=== PATIENT | male | born 1970 | race Caucasian/White ===

== ENCOUNTER 2019-09-16 17:05 | Emergency (ER) | payer BC, SELFPAY ==
--- NOTE | ~2019-09-16 | XR_ITS ---
XR finger 2nd RT min 2V DATE: 09/16/2019 17:23 INDICATION: Injury. Pain at proximal interphalangeal area TECHNIQUE: 4 views COMPARISON: None FINDINGS: No fracture or dislocation, periosteal reaction or bone destruction. No radiopaque soft tis kaitlyn foreign body or subcutaneous emphysema is evident. IMPRESSION: No fracture or dislocation of second digit Reviewed, dictated and finalized at location A.
[2019-09-16 17:10] VITALS: BP 123/52; PULSE 86; RESP 16; TEMP 36.6; O2SAT 97
--- NOTE | 2019-09-16 17:52 | ED.UPPEXIN ---
HPI - Extremity Injury (Upper) General Chief Complaint: Extremity Injury, Upper Stated Complaint: r index finger injury Time Seen by Provider: 09/16/19 17:15 Source: patient Mode of arrival: ambulatory Limitations: no limitations History of Present Illness HPI narrative: This is a 48 year old male that presents to the ER for finger injury just prior to arrival. Reports he was pulling on his shoes and felt the finger pop. Reports he had to put the finger back in place. Reports since he has had decreased ROM due to pain. Denies numbness. Related Data Home Medications Medication Instructions Recorded Confirmed atorvastatin 40 mg PO DAILY 09/16/19 clopidogrel [Plavix] 75 mg PO DAILY 09/16/19 fenofibrate micronized 200 mg PO DAILY 09/16/19 fluoxetine [Prozac] 20 mg PO DAILY 09/16/19 furosemide [Lasix] 40 mg PO DAILY 09/16/19 lisinopril 5 mg PO DAILY 09/16/19 metoprolol tartrate 50 mg PO Q12H 09/16/19 pantoprazole 40 mg PO QAM 09/16/19 potassium chloride 10 meq PO DAILY 09/16/19 Allergies Allergy/AdvReac Type Severity Reaction Status Date / Time codeine Allergy Severe HIVES Verified 09/16/19 17:39 niacin AdvReac Intermediate Gastrointestinal Verified 09/16/19 17:39 [From Niaspan Upset Extended-Release] Review of Systems Review of Systems: Narrative: CONSTITUTIONAL: Denies fever MUSCULOSKELETAL: Reports joint pain, and myalgia. NEUROLOGIC: Denies numbness All systems reviewed & are unremarkable except as noted in HPI and below PMFSH Past Medical History Medical History (Updated 09/16/19 @ 18:04 by Carey Rowland PA-C) History of gastroesophageal reflux (GERD) History of hyperlipidemia History of hypertension Social History Social History Gender identity (if verbalized by the patient): Male Exam Narrative: Exam Narrative: GENERAL: Well-appearing, well-nourished, and in no acute distress. HEAD: Normocephalic, atraumatic. EYES: EOMI. EXTREMITIES: Normal range of motion. No edema or obvious deformity. Normal sensation. Normal radial pulses SKIN: Warm, dry, no rash. NEURO: No focal deficits. Alert and oriented x3. PSYCH: Normal mood and affect Course Vital Signs Vital signs: Vital Signs Temperature 98 F 09/16/19 17:10 Pulse Rate 86 09/16/19 17:10 Respiratory Rate 16 09/16/19 17:10 Blood Pressure 123/52 L 09/16/19 17:10 Pulse Oximetry 97 09/16/19 17:10 Temperature 98 F 09/16/19 17:10 Pulse Rate 86 09/16/19 17:10 Respiratory Rate 16 09/16/19 17:10 Blood Pressure 123/52 L 09/16/19 17:10 Pulse Oximetry 97 09/16/19 17:10 MDM - Extremity Injury (Upper) MDM Narrative Medical decision making narrative: Patient presents to the emergency department for finger injury just prior to arrival. Right second finger injury is without acute findings. Patient placed in a metal finger splint. Will be given plastics for follow-up. Patient was given warnings to return to the ER Imaging Data Radiologist's impression: ITS Impressions Finger X-Ray 09/16/19 17:33 IMPRESSION: No fracture or dislocation of second digit Critical Care Time Critical Care Time Critical Care Time: No Discharge Plan Discharge Clinical Impression: Finger sprain Qualifiers: Encounter type: initial encounter Finger: index finger Sprain of finger site: unspecified site Laterality: right Qualified Code(s): S63.610A - Unspecified sprain of right index finger, initial encounter Patient Disposition: Home, Self-Care Condition: Stable Instructions: Finger Sprain (ED) Additional Instructions: Return to the emergency department if you experience fever, redness and swelling of your hand, numbness, or any other symptoms that are concerning to you Rest. Ice to the area. Wear splint. [id number] pain medication as needed Follow-up with plastic surgery Prescriptions: No Action furosemide [Lasix] 40 mg Tablet 40 mg PO DAILY RF: 0 atorvastatin 40
== END 2019-09-16 18:19 | disposition home or self-care (01) ==
PROVIDERS: Emergency Provider Emergency Medicine; PCP Physician Assistant
DX: S63.610A Unspecified sprain of right index finger, initial encounter (principal); K21.9 Gastro-esophageal reflux disease without esophagitis; E78.5 Hyperlipidemia, unspecified; I10 Essential (primary) hypertension; X50.9XXA Other and unspecified overexertion or strenuous movements or postures, initial encounter
CPT/HCPCS: 29130; 73140; 99283

== ENCOUNTER 2019-10-17 07:30 | Outpatient (CLI) | payer BC, SELFPAY ==
--- NOTE | ~2019-10-17 | XR_ITS ---
EXAMINATION: NM bone 3 phase, XR foot RT min 3V DATE: 10/17/2019 13:08 INDICATION: Diabetic foot ulcer with one month of pain at the plantar aspect of the right midfoot. TECHNIQUE: 1. 25.5 mCi Tc-99m HDP by intravenous route. Scintigrams of the bilateral feet and ankles were obtai juany in angiographic, blood pool, and delayed phases. 2. Dorsal plantar, lateral and 2 oblique views of the right foot were obtained for correlation. COMPARISON: Right foot radiographs dated 10/17/2019 FINDINGS: Postoperative change of bilateral transmetatarsal amputations are noted. There is diffuse increased a ctivity throughout the right foot and ankle relative to the left on the immediate angiographic an ear ly blood pool images which is slightly more prominent on the medial than along the lateral side of th e right foot and ankle. There is also asymmetric diffuse mildly increased uptake in the bones at the right foot and ankle relative to the left likely reflecting the diffuse asymmetrically increased perf usion to the right foot and ankle. There are foci of likely degenerative joint centered uptake at the bilateral ankles and at the dorsal aspect of the right talonavicular joint. Correlation with the pavan in radiographs demonstrates at the ulceration of concern at the lateral/plantar aspect of the midfoot near the base of the right fifth metatarsal. There is no cortical erosion of the bones at this locat ion nor significant focally increased bone uptake to suggest osteomyelitis. IMPRESSION: 1. Diffuse right-sided increased soft tissue uptake on the angiographic and immediate blood pool robert ges and mild diffuse asymmetric increased bone uptake likely reflecting inflammation related to a pro minent ulceration at the plantar/lateral aspect of the forefoot. No cortical erosion or significant i ncreased bone uptake at the adjacent base of the fifth metatarsal to suggest osteomyelitis. 2. Likely degenerative joint centered uptake at the bilateral ankles and at the dorsal aspect of the right talonavicular joint. Reviewed, dictated and finalized at location A. IMPRESSION: 1. Diffuse right-sided increased soft tissue uptake on the angiographic and im mediate blood pool images and mild diffuse asymmetric increased bone uptake lik ashley reflecting inflammation related to a prominent ulceration at the plantar/la teral aspect of the forefoot. No cortical erosion or significant increased bone uptake at the adjacent base of the fifth metatarsal to suggest osteomyelitis. 2. Likely degenerative joint centered uptake at the bilateral ankles and at the dorsal aspect of the right talonavicular joint.
== END 2019-10-17 07:31 | disposition home or self-care (01) ==
PROVIDERS: PCP Physician Assistant; Visit Provider Podiatrist Foot & Ankle Surgery
DX: L97.413 Non-pressure chronic ulcer of right heel and midfoot with necrosis of muscle (principal)
CPT/HCPCS: 73630; 78315; A9561

== ENCOUNTER 2020-03-10 13:04 | Observation (INO) | payer BC, SELFPAY ==
--- NOTE | ~2020-03-10 | CT_ITS ---
EXAMINATION: CT abdomen pelvis w con EXAM DATE: 03/10/2020 14:12 INDICATION: Low abdominal pain, nausea vomiting diarrhea. Difficulty urinating. TECHNIQUE: Spiral CT of the abdomen and pelvis was performed following intravenous injection of 100 m L Omnipaque 350. Axial, coronal and sagittal images were reviewed. The dose-length product (DLP) fo r this examination was 1743.94 mGy-cm. The exposure was tailored according to patient size (auto mA exposure control), and iterative reconstruction (ASIR) was used as additional dose reduction techniqu e. Comparison is made to prior examination from 09/29/2018. FINDINGS: There is a right adrenal gland lesion measuring up to 7.7 cm, predominantly fat attenuation with soft tissue strands in some regions of coarse calcification peripherally. Size appears unchange d compared to prior study, there has been some increase in the amount of calcification. Appearance is consistent with a large myelolipoma (benign), but these are sometimes resected if this large. Correl ate with any known management for this at time of prior CT September 2018. Left adrenal gland, spleen, gallbladder and pancreas are unremarkable. Gallbladder is unremarkable. No biliary obstruction. Portal and splenic veins are patent. Kidneys enhance symmetrically. There is no hydronephrosis. The prostate is unremarkable. Bladder is moderately distended, unremarkable. There is no retroperitoneal or pelvic lymphadenopathy. There is moderate scattered arteriosclerot ic disease. Small left inguinal fat-containing hernia. The appendix is not positively visualized. There is no pericecal inflammatory change to suggest appe ndicitis. The stomach and small bowel are unremarkable. There is expected amount of colonic stool. No free intraperitoneal gas. The heart is normal in size. There are no pericardial or pleural e ffusions. The lung bases are unremarkable. There are no osteoblastic or osteolytic lesions identifi ed. Nonspecific subcutaneous fat stranding lateral aspect left thigh. IMPRESSION: 1. No acute intra-abdominal findings. 2. Predominantly fatty density right adrenal mass consistent with myelolipoma. Please see above. 3. Nonspecific left thigh subcutaneous edema laterally. 4. Small left inguinal fat-containing hernia. Reviewed, dictated and finalized at location A. RVISOR UNLOADING
[2020-03-10 13:09] VITALS: BP 133/72; PULSE 83; RESP 18; TEMP 36.9; O2SAT 99
[2020-03-10 13:35] LABS: Basophils Percent Auto 0.2 % (0.2-1.2); Eosinophils Absolute Auto 0.4 K/mm3 (0-0.3); Eosinophils Percent Auto 3.3 % (0-4.4); Hematocrit 47.5 % (42.0-52.0); Hemoglobin 16.1 g/dL (14.0-18.0); Immature Granulocyte Absolute 0.05 K/mm3 (0.00-0.031); Immature Granulocyte Percent A 0.4 % (0-0.5); Lymphocytes Absolute Auto 1.73 K/mm3 (0.9-3.2); Lymphocytes Percent Auto 14.8 % (18.3-44.2); Mean Corpuscular HGB Conc 33.9 g/dl (32-36); Mean Corpuscular Hemoglobin 30.2 pg (26-34); Mean Corpuscular Volume 89.1 fl (80-100); Mean Platelet Volume 10.8 fl (7.4-10.4); Monocytes Absolute Auto 0.9 K/mm3 (0.1-0.6); Monocytes Percent Auto 7.4 % (2.6-8.5); Neutrophils Absolute Auto 8.6 K/mm3 (1.3-6.7); Neutrophils Percent Auto 73.9 % (45.5-73.1); Platelet Count Result 228 k/mm3 (150-375); Red Blood Count 5.33 M/mm3 (4.6-6.20); Red Cell Distribution Width 14.3 % (11.5-14.5); White Blood Count 11.7 K/mm3 (4.5-10.0)
[2020-03-10 13:48] LABS: Alanine Aminotransferase 18 U/L (4-50); Albumin Level 3.9 g/dL (3.5-5.1); Alkaline Phosphatase 67 U/L (38-126); Anion Gap 10 mmol/L (8-16); Aspartate Amino Transferase 26 U/L (17-59); Bilirubin,Total 0.6 mg/dL (0.2-1.3); Blood Urea Nitrogen 22 mg/dL (9-20); Calcium 9.5 mg/dL (8.4-10.2); Carbon Dioxide 20 mmol/L (22-30); Chloride 103 mmol/L (98-107); Estimated CRCL calculation 102 ml/min; Estimated Glomerular Filt Rate > 60; Glucose 149 mg/dL (75-110); Lipase 29 U/L (23-300); Potassium 4.6 mmol/L (3.4-5.0); Sodium 133 mmol/L (137-145)
[2020-03-10 14:00] LABS: Add Urine Microscopic? YES; Appearance Urine Cloudy (Clear); Bacteria Urine 4+ /hpf; Bilirubin Urine Negative (Negative); Blood Urine 1+ (Negative); Color Urine Yellow (Yellow); Glucose Urine UA 1+ mg/dL (Negative); Ketones Urine Negative (Negative); Leukocyte Esterase Ur Negative LEU/UL (Negative); Mucus Urine Heavy /lpf; Nitrate Urine Negative (Negative); Protein Urine 2+ mg/dL (Negative); RBC Urine >75 /hpf (0-2); Specific Grav Ur 1.027 (1.001-1.035); Squamous Epithelial Cell Urine Occasional /hpf (Few); Urobilinogen Urine Negative mg/dL (<2.0); WBC Urine >75 /hpf
[2020-03-10 14:02] VITALS: BP 152/96; BP 154/96; PULSE 81; PULSE 82
[2020-03-10 14:03] VITALS: BP 130/81; PULSE 86
--- NOTE | 2020-03-10 14:11 | ED.GENADULT ---
HPI - General Adult General Chief complaint: Nausea/Vomiting/Diarrhea Stated complaint: n/v/d x 1 week Time Seen by Provider: 03/10/20 13:19 Source: patient and family Mode of arrival: ambulatory Limitations: no limitations History of Present Illness HPI narrative: 49 years old white male presents with nausea, vomiting and diarrhea started 1 week ago. Patient denies any fever, chills, exposure to anybody with COVID-19. Patient also complaining of trouble urinating for the last 2 days. He goes to urinate without urine output. Related Data Home Medications Medication Instructions Recorded Confirmed atorvastatin 40 mg PO DAILY 09/16/19 clopidogrel [Plavix] 75 mg PO DAILY 09/16/19 fenofibrate micronized 200 mg PO DAILY 09/16/19 fluoxetine [Prozac] 20 mg PO DAILY 09/16/19 lisinopril 5 mg PO DAILY 09/16/19 metoprolol tartrate 50 mg PO Q12H 09/16/19 pantoprazole 40 mg PO QAM 09/16/19 Allergies Allergy/AdvReac Type Severity Reaction Status Date / Time codeine Allergy Severe HIVES Verified 03/10/20 13:39 niacin AdvReac Intermediate Gastrointestinal Verified 03/10/20 13:39 [From Niaspan Upset Extended-Release] Review of Systems Review of Systems: Narrative: CONSTITUTIONAL: Denies fever, chills, or sweats. EYES: Denies visual changes, redness, or discharge. ENT: Denies rhinorrhea, congestion, sore throat, or otalgia. CARDIOVASCULAR: Denies chest pain, palpitations, or edema. RESPIRATORY: Denies cough or dyspnea. GASTROINTESTINAL: Abdominal pain, nausea, vomiting and diarrhea GENITOURINARY: Denies dysuria or hematuria. SKIN: Denies rash or itching. MUSCULOSKELETAL: Denies back pain, joint pain, or myalgia. NEUROLOGIC: Denies headache, numbness, or weakness. PSYCHIATRIC: Denies anxiety or depression. [facility] Past Medical History Medical History (Updated 03/10/20 @ 16:05 by Ev Porras MD) History of gastroesophageal reflux (GERD) History of hyperlipidemia History of hypertension Social History Social History Gender identity (if verbalized by the patient): Male Course Vital Signs Vital signs: Vital Signs Temperature 36.9 C 03/10/20 13:09 Pulse Rate 83 03/10/20 13:09 Respiratory Rate 18 03/10/20 13:09 Blood Pressure 133/72 03/10/20 13:09 Pulse Oximetry 99 03/10/20 13:09 Temperature 36.9 C 03/10/20 13:09 Pulse Rate 86 03/10/20 14:03 Respiratory Rate 18 03/10/20 13:09 Blood Pressure 130/81 03/10/20 14:03 Pulse Oximetry 99 03/10/20 13:09 Medical Decision Making Vital Signs Vital Signs: Vital Signs Temperature 36.9 C 03/10/20 13:09 Pulse Rate 83 03/10/20 13:09 Respiratory Rate 18 03/10/20 13:09 Blood Pressure 133/72 03/10/20 13:09 Pulse Oximetry 99 03/10/20 13:09 Temperature 36.9 C 03/10/20 13:09 Pulse Rate 86 03/10/20 14:03 Respiratory Rate 18 03/10/20 13:09 Blood Pressure 130/81 03/10/20 14:03 Pulse Oximetry 99 03/10/20 13:09 Lab Data Result diagrams: 03/10/20 13:17 03/10/20 13:17 Labs: Lab Results 03/10/20 03/10/20 03/10/20 Range/Units 13:17 13:17 13:45 WBC 11.7 H (4.5-10.0) K/mm3 RBC 5.33 (4.6-6.20) M/mm3 Hgb 16.1 (14.0-18.0) g/dL Hct 47.5 (42.0-52.0) % MCV 89.1 (80-100) fl MCH 30.2 (26-34) pg MCHC 33.9 (32-36) g/dl RDW 14.3 (11.5-14.5) % Plt Count 228 (150-375) k/mm3 MPV 10.8 H (7.4-10.4) fl Immature Gran % (Auto) 0.4 (0-0.5) % Neut % (Auto) 73.9 H (45.5-73.1) % Lymph % (Auto) 14.8 L (18.3-44.2) % Grainger % (Auto) 7.4 (2.6-8.5) % Eos % (Auto) 3.3 (0-4.4) % Baso % (Auto) 0.2 (0.2-1.2) % Lymph # (Auto) 1.73 (0.9-3.2) K/mm3 Grainger # (Auto) 0.9 H (0.1-0.6) K/mm3 Eos # (Auto) 0.4 H (0-0.3) K/mm3 Baso # (Auto) 0.0 (0.0-0.1) K/mm3 Abs Immat Gran (auto) 0.05 H (0.00-0.031) K/mm3 Absolute Neuts (auto) 8.6 H (1.3-6.7) K/mm3 Absolute Nucleated RBC 0.0 (0.0-0.012) K
[2020-03-10] MEDS: SODIUM CHLORIDE 0.9% IV 1,000 ML 999 ML IV CONT (14:20)
[2020-03-10 16:18] VITALS: BP 160/83; PULSE 79; RESP 18; O2SAT 100
[2020-03-10 17:15] VITALS: BP 139/67; PULSE 74; RESP 18; TEMP 36.4; O2SAT 100
[2020-03-10 18:19] LABS: Glucose Point of Care 114 (65-105)
[2020-03-10] MEDS: SODIUM CHLORIDE 0.9% IV 1,000 ML 150 ML IV CONT (18:35)
[2020-03-10 18:38] VITALS: BMI 40.6
--- NOTE | 2020-03-10 18:45 | PC.NURSE ---
This patient, Sina Sebastian, was admitted to 3 Med Surg Room 329-01. Patient/family oriented to hospital policies and general routines including ID bracelet, bed and alarms, visiting hours, pain management, procedures, bathroom and other care routines, personal items, smoking policy, room service/diet, and visiting hours. Information on how to activate the Rapid Response Team has been discussed. Patient/Family are encouraged to report perceived risks to care and to ask questions if they do not understand what they are told or what they should do.
[2020-03-10 20:00] VITALS: BP 139/62; PULSE 72; RESP 18; TEMP 36.8; O2SAT 99
--- NOTE | 2020-03-10 21:00 | PM.IMHP ---
H&P: HPI History of Present Illness Date/Time: 03/10/20 21:00 Chief Complaint: Diarrhea and difficulties urinating. Narrative: Sina Sebastian is a 49-year-old male with coronary artery disease status post three-vessel CABG, insulin-dependent diabetes, hypertension, and hyperlipidemia presented to the emergency department earlier today via private vehicle from home with complaints of diarrhea and difficulties urinating. For about the last week or so he has not been feeling well due to unrelenting diarrhea, reportedly passing upwards of 20 stools a day which have continued despite taking antimotility agent however they have slowed up some as he has not had much to eat or drink in the last 24 to 36 hours. Last evening he had an episode of emesis after eating however that has since resolved. He was started on Jardiance and Farxiga about 2 weeks ago, and assumes that perhaps his symptoms are due to one or both of those medications. Last Jardiance injection was just yesterday but he has not taken Farxiga for several days however that has not made a difference in his diarrhea. He also mentions taking ciprofloxacin for 2 weeks within the last month for a diabetic foot ulcer, but completed that course well over a week ago. Over the past 2 days he has had difficulties urinating, with decreased urine output and feelings of incomplete evacuation of his bladder. At the time my evaluation his bladder is distended and tender to palpation. Bladder scan demonstrated 940 cc of urine in the bladder with a postvoid residual of 347 cc. Prior to last couple of days he has not had issues urinating and specifically denies dysuria, hesitancy, urgency, nocturia, and decreased stream. No fever or chills. He denies cough and shortness of breath. No sinus congestion, rhinorrhea, otalgia, or odynophagia. No known sick contacts. No history of C diff. No recent travel. Review of Systems Review of Systems: Narrative: Twelve systems were reviewed with pertinent positives and negatives as per HPI. No headache. He denies chest pain and shortness of breath. No cough. He suspects he has sleep apnea as he snores and his has stolen that she thinks he stops breathing on occasion at night. He also has some daytime somnolence. His primary care provider is setting him up with an outpatient sleep study soon. No orthopnea, PND, or lower extremity edema. He has not had exertional chest pain or palpitations. No back pain or recent injury. No saddle anesthesia. He recently saw his contract specialist and was started on Jardiance and Farxiga, reportedly recent hemoglobin A1c was around 8%. No blurry vision, polydipsia, or polyuria. He has a chronic right diabetic foot wound for which he sees a lawn care specialist weekly. No pain at the site. No purulent drainage, erythema, or edema. Except as documented, all other systems were reviewed and are negative. [facility] Past Medical History Medical History (Updated 03/10/20 @ 23:41 by Loree Mckeon PA-C) Chronic ulcer of right foot due to diabetes mellitus Coronary artery disease History of myocardial infarction in November 2010. Status post three-vessel CABG in July 2015. Degenerative disc disease Depression with anxiety Dyslipidemia Gastroesophageal reflux disease History of MRSA infection History MRSA skin and soft tissue infection. History of osteomyelitis Bilateral feet requiring multiple amputations. Hypertension Insulin dependent type 2 diabetes mellitus Ischemic cardiomyopathy Ejection fraction as low as 36%. EF 48% on echocardiogram dated 11/01/2017. Osteoarthritis Surgical History Surgical History (Updated 03/10/20 @ 22:33 by Loree Mckeon PA-C) History of appendectomy History of cataract extraction History of coronary artery bypass graft x 3 (~07/2015) History of lumbar surgery History of transmetatarsal amputation of left foot (~2009) History of transmetatarsal amputation of right foot (~2013) Status post
[2020-03-10 21:38] LABS: Glucose Point of Care 128 (65-105)
[2020-03-10 22:25] LABS: SARS-CoV-2 RNA PCR Negative
[2020-03-11] VITALS: BP 149/73; PULSE 72; RESP 20; TEMP 36.6; O2SAT 98
[2020-03-11 00:12] VITALS: PULSE 72
[2020-03-11] MEDS: TAMSULOSIN HCL 0.4 MG CAPSULE PO (00:12)
[2020-03-11] MEDS: METOPROLOL TARTRATE 50 MG TAB PO ×2 (00:12→09:03)
[2020-03-11] MEDS: SODIUM CHLORIDE 0.9% IV 1,000 ML 150 ML IV CONT (03:05)
[2020-03-11 06:00] VITALS: BP 145/74; PULSE 68; RESP 18; TEMP 36.6; O2SAT 99
[2020-03-11 07:07] LABS: Basophils Percent Auto 0.2 % (0.2-1.2); Eosinophils Absolute Auto 0.6 K/mm3 (0-0.3); Eosinophils Percent Auto 7.3 % (0-4.4); Hematocrit 44.6 % (42.0-52.0); Hemoglobin 14.7 g/dL (14.0-18.0); Immature Granulocyte Absolute 0.02 K/mm3 (0.00-0.031); Immature Granulocyte Percent A 0.2 % (0-0.5); Lymphocytes Percent Auto 19.4 % (18.3-44.2); Mean Corpuscular Hemoglobin 29.7 pg (26-34); Mean Corpuscular Volume 90.1 fl (80-100); Mean Platelet Volume 10.7 fl (7.4-10.4); Monocytes Absolute Auto 0.6 K/mm3 (0.1-0.6); Monocytes Percent Auto 6.5 % (2.6-8.5); Neutrophils Absolute Auto 5.8 K/mm3 (1.3-6.7); Neutrophils Percent Auto 66.4 % (45.5-73.1); Platelet Count Result 181 k/mm3 (150-375); Red Blood Count 4.95 M/mm3 (4.6-6.20); Red Cell Distribution Width 14.3 % (11.5-14.5); White Blood Count 8.8 K/mm3 (4.5-10.0)
[2020-03-11 07:16] LABS: Hemoglobin A1C 7.8 % (<5.7)
[2020-03-11 07:22] LABS: Anion Gap 4 mmol/L (8-16); Blood Urea Nitrogen 16 mg/dL (9-20); Calcium 8.6 mg/dL (8.4-10.2); Carbon Dioxide 25 mmol/L (22-30); Chloride 104 mmol/L (98-107); Estimated CRCL calculation 102 ml/min; Estimated Glomerular Filt Rate > 60; Glucose 138 mg/dL (75-110); Magnesium 1.3 mg/dL (1.6-2.3); Potassium 4.1 mmol/L (3.4-5.0); Sodium 133 mmol/L (137-145)
[2020-03-11] MEDS: ATORVASTATIN 40 MG TABLET PO (09:02)
[2020-03-11] MEDS: CLOPIDOGREL BISULFATE 75 MG TABLET PO (09:02)
[2020-03-11] MEDS: PANTOPRAZOLE 40 MG TABLET PO (09:02)
[2020-03-11] MEDS: lisinopriL 5 MG TABLET PO (09:02)
[2020-03-11] MEDS: FLUoxetine HCL 20 MG CAPSULE PO (09:02)
[2020-03-11 09:03] VITALS: PULSE 77
[2020-03-11] MEDS: FENOFIBRATE,MICRONIZED 48 MG TABLET 192 MG PO (09:03)
--- NOTE | 2020-03-11 09:41 | PM.DS ---
DS: Admitting Diagnosis Admitting Diagnosis Admitting Diagnosis: 1 UTI 2. Dehydration 3. Dyslipidemia 4. Hypertension DS: Discharge Diagnosis Discharge Diagnosis (1) Urinary tract infection: Qualifiers: Hematuria presence: with hematuria Urinary tract infection type: site unspecified Qualified Code(s): N39.0 - Urinary tract infection, site not specified; R31.9 - Hematuria, unspecified Code(s): N39.0 - Urinary tract infection, site not specified Status: Acute (2) Dehydration: Code(s): E86.0 - Dehydration Status: Acute (3) Dyslipidemia: Code(s): E78.5 - Hyperlipidemia, unspecified Status: Acute (4) Hypertension: Code(s): I10 - Essential (primary) hypertension Status: Inactive (5) Depression with anxiety: Code(s): F41.8 - Other specified anxiety disorders Status: Inactive (6) Coronary artery disease: Code(s): I25.10 - Atherosclerotic heart disease of [place] coronary artery without angina pectoris Status: Inactive (7) Ischemic cardiomyopathy: Code(s): I25.5 - Ischemic cardiomyopathy Status: Inactive (8) Chronic ulcer of right foot due to diabetes mellitus: Code(s): E11.621 - Type 2 diabetes mellitus with foot ulcer; L97.519 - Non-pressure chronic ulcer of other part of right foot with unspecified severity Status: Acute (9) Insulin dependent type 2 diabetes mellitus: Code(s): E11.9 - Type 2 diabetes mellitus without complications; Z79.4 - [employer] (current) use of insulin Status: Acute (10) Urinary retention: Code(s): R33.9 - Retention of urine, unspecified Status: Acute DS: Summary Hospital Course Hospital Course: arrative: Sina Sebastian is a 49-year-old male with coronary artery disease status post three-vessel CABG, insulin-dependent diabetes, hypertension, and hyperlipidemia presented to the emergency department earlier today via private vehicle from home with complaints of diarrhea and difficulties urinating. For about the last week or so he has not been feeling well due to unrelenting diarrhea, reportedly passing upwards of 20 stools a day which have continued despite taking antimotility agent however they have slowed up some as he has not had much to eat or drink in the last 24 to 36 hours. Last evening he had an episode of emesis after eating however that has since resolved. He was started on Jardiance and Farxiga about 2 weeks ago, and assumes that perhaps his symptoms are due to one or both of those medications. Last Jardiance injection was just yesterday but he has not taken Farxiga for several days however that has not made a difference in his diarrhea. He also mentions taking ciprofloxacin for 2 weeks within the last month for a diabetic foot ulcer, but completed that course well over a week ago. Over the past 2 days he has had difficulties urinating, with decreased urine output and feelings of incomplete evacuation of his bladder. At the time my evaluation his bladder is distended and tender to palpation. Bladder scan demonstrated 940 cc of urine in the bladder with a postvoid residual of 347 cc. Prior to last couple of days he has not had issues urinating and specifically denies dysuria, hesitancy, urgency, nocturia, and decreased stream. No fever or chills. He denies cough and shortness of breath. No sinus congestion, rhinorrhea, otalgia, or odynophagia. No known sick contacts. No history of C diff. No recent travel. Patient is feeling better today. Patient wants to go home today. Will discharge the patient at his request. Patient will be given p.o. antibiotics. Patient would prefer to primary care physician and Urology outpatient next week. Condition dime-sized stable. Will follow the culture reports an outpatient. Time spent discussing smoking cessation with patient: 3 to 10 minutes Status at Discharge Cognitive/behavioral status at discharge: Stable Functional status at
[2020-03-11 12:13] LABS: Glucose Point of Care 145 (65-105)
== END 2020-03-11 11:34 | disposition home or self-care (01) ==
LOC: ANHED 16:40 → ANH3MEDSUR 23:34
PROVIDERS: Emergency Medicine; Physician Assistant; Admitting Provider Internal Medicine; Emergency Provider Emergency Medicine; PCP Physician Assistant; Visit Provider Internal Medicine
DX: N39.0 Urinary tract infection, site not specified (principal); E86.0 Dehydration; R33.9 Retention of urine, unspecified; R11.2 Nausea with vomiting, unspecified; R19.7 Diarrhea, unspecified; E11.621 Type 2 diabetes mellitus with foot ulcer; L97.519 Non-pressure chronic ulcer of other part of right foot with unspecified severity; I10 Essential (primary) hypertension; E78.5 Hyperlipidemia, unspecified; K21.9 Gastro-esophageal reflux disease without esophagitis; R93.5 Abnormal findings on diagnostic imaging of other abdominal regions, including retroperitoneum; I25.10 Atherosclerotic heart disease of native coronary artery without angina pectoris; F41.8 Other specified anxiety disorders; I25.5 Ischemic cardiomyopathy; M19.90 Unspecified osteoarthritis, unspecified site; I25.2 Old myocardial infarction; Z79.02 Long term (current) use of antithrombotics/antiplatelets; Z79.4 Long term (current) use of insulin; Z95.1 Presence of aortocoronary bypass graft; Z86.14 Personal history of Methicillin resistant Staphylococcus aureus infection; F17.210 Nicotine dependence, cigarettes, uncomplicated; Z20.828 Contact with and (suspected) exposure to other viral communicable diseases
CPT/HCPCS: 36415; 74177; 80048; 80053; 81001; 83036; 83690; 83735; 85025; 87077; 87086; 87088; 87186; 87324; 87635; 96361; 96365; 99285; A9270; C9803; G0378; J0696; J7030; Q9967; U0003

== ENCOUNTER 2020-03-25 08:23 | Outpatient (CLI) | payer BC, SELFPAY ==
--- NOTE | ~2020-03-25 | US_ITS ---
EXAMINATION: US art doppler w press AMANDA INFANTE EXAM DATE: 03/25/2020 09:18 INDICATION: Peripheral vascular disease, foot ulcer. Bilateral toe amputations from infection. Pain a ll cervical bottom of right foot. TECHNIQUE: Segmental pressures and plethysmographic and Doppler waveforms of the brachial and lower e xtremity arteries were obtained. There is no prior study for comparison. FINDINGS: Right and left brachial artery pressures of 147 mm Hg and 131 mm Hg, respectively, are concordant (no rmal difference <= 30 mmHg). RIGHT LEG: The ankle-brachial index (TRINA) is 0.96 (normal >= 0.9-1). The lower extremity ratios, segmental pressure gradients as follows; Distal superficial femoral artery: ----- 1.27 (187 mmHg). Popliteal: 0.96 (141 mmHg). Dorsalis pedis: 0.95 (140 mmHg). Posterior tibial: 0.96 (141 mmHg). (Normal gradients <= 20-30 mmHg between adjacent levels on the same leg or the same levels on the two legs). Arterial waveforms are weakly biphasic. LEFT LEG: The ankle-brachial index (TRINA) is 0.71 (normal >= 0.9-1). The lower extremity ratios, segmental pressure gradients as follows; Distal superficial femoral artery: ----- 0.99 (145 mmHg). Popliteal: 0.64 (94 mmHg). Dorsalis pedis: 0.68 (100 mmHg). Posterior tibial: 0.71 (105 mmHg). (Normal gradients <= 20-30 mmHg between adjacent levels on the same leg or the same levels on the two legs). Arterial waveforms are weakly biphasic. IMPRESSION: 1. Right ankle-brachial index 0.96, normal. 2. Left ankle-brachial index 0.71, mildly decreased. 3. Segmental pressures as above. Reviewed, dictated and finalized at location B. BROTHER
== END 2020-03-25 08:24 | disposition home or self-care (01) ==
PROVIDERS: PCP Physician Assistant; Visit Provider Podiatrist Foot & Ankle Surgery
DX: I70.203 Unspecified atherosclerosis of native arteries of extremities, bilateral legs (principal); M79.89 Other specified soft tissue disorders
CPT/HCPCS: 93923

== ENCOUNTER 2020-04-08 15:50 | Observation (INO) | payer BC, SELFPAY ==
[2020-04-08] VITALS (7 sets, daily range): BP systolic 107–143; BP diastolic 60–100; PULSE 81–88; RESP 16–18; TEMP 36.2–37.2; O2SAT 97–100; BMI 41.8
--- NOTE | ~2020-04-08 | US_ITS ---
EXAMINATION: US venous doppler [facility] DATE: 04/08/2020 16:39 INDICATION: Right lower limb pain TECHNIQUE: Grayscale ultrasound images without and with compression and Doppler ultrasound images of the right lower extremity veins were obtained. COMPARISON: None. FINDINGS: The visualized portions of right common femoral vein, profunda (deep) femoral vein, femoral vein, pop liteal vein, peroneal trunk, posterior tibial veins, peroneal veins, gastrocnemius vein and greater s aphenous vein outflow are patent. IMPRESSION: 1. No deep venous thrombosis in the right lower limb. Reviewed, dictated and finalized at location B. 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
--- NOTE | 2020-04-08 16:21 | ED.GENADULT ---
HPI - General Adult General Chief complaint: Wound/Laceration Stated complaint: KNOT ON LEG Time Seen by Provider: 04/08/20 16:09 Source: patient History of Present Illness HPI narrative: Patient is a 49 y/o male complaining of right leg pain since last night. He states that he had some nausea and vomiting yesterday, which mostly resolved. He developed aching pain of right thigh since last night. He also has some redness to the area and fever. He rates his pain as 7/10 and it's worse with touching. He had fever of 101.4 earlier which responded to Tylenol. He has chronic wound to right foot for last 6 months. Related Data Home Medications Medication Instructions Recorded Confirmed atorvastatin 40 mg PO DAILY 09/16/19 04/08/20 clopidogrel [Plavix] 75 mg PO DAILY 09/16/19 04/08/20 fenofibrate micronized 200 mg PO DAILY 09/16/19 04/08/20 fluoxetine [Prozac] 20 mg PO DAILY 09/16/19 04/08/20 lisinopril 5 mg PO DAILY 09/16/19 04/08/20 metoprolol tartrate 50 mg PO Q12H 09/16/19 04/08/20 pantoprazole 40 mg PO QAM 09/16/19 04/08/20 Allergies Allergy/AdvReac Type Severity Reaction Status Date / Time codeine Allergy Severe HIVES Verified 03/10/20 13:39 niacin AdvReac Intermediate Gastrointestinal Verified 03/10/20 13:39 [From Niaspan Upset Extended-Release] Review of Systems Constitutional: Constitutional: Denies chills, Reports fever(s), Denies headache(s) and Denies weakness Eyes: Eyes: Denies blurry vision ENT: Denies headache(s) and Denies neck pain Cardiovascular: Cardiovascular: Denies chest pain and Denies dyspnea Respiratory: Respiratory: Denies cough and Denies dyspnea Gastrointestinal: Gastrointestinal: Denies abdominal pain, Denies diarrhea, Reports nausea and Reports vomiting Genitourinary: Genitourinary: Denies hematuria and Denies dysuria Musculoskeletal: Musculoskeletal: Denies back pain and Denies neck pain Integumentary/Breasts: Skin/Breast: Reports erythema (right thigh) and Reports wounds (chronic wound plantar surface of right foot) Neurologic: Denies headache(s) and Denies weakness [facility] Past Medical History Medical History (Updated 04/08/20 @ 23:41 by Renetta Butler MD) Chronic ulcer of right foot due to diabetes mellitus Coronary artery disease History of myocardial infarction in November 2010. Status post three-vessel CABG in July 2015. Degenerative disc disease Depression with anxiety Dyslipidemia Gastroesophageal reflux disease History of MRSA infection History MRSA skin and soft tissue infection. History of osteomyelitis Bilateral feet requiring multiple amputations. Hypertension Insulin dependent type 2 diabetes mellitus Hemoglobin A1c was 7.8% on 03/03/2020. Ischemic cardiomyopathy Ejection fraction as low as 36%. EF 48% on echocardiogram dated 11/01/2017. Osteoarthritis Surgical History Surgical History History of appendectomy History of cataract extraction History of coronary artery bypass graft x 3 (~07/2015) History of lumbar surgery History of transmetatarsal amputation of left foot (~2009) History of transmetatarsal amputation of right foot (~2013) Status post debridement Multiple debridements over the years for diabetic foot ulcers. Family History Family History Mother , of an IA at age 42. Acute myocardial infarction Hypertension Father , from an IA at age 36. Acute myocardial infarction Diabetes mellitus Social History Social History Social History: The patient lives in [place] with his . 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 He smoked a pack of cigarettes per day for at least 30 years. Consumes alcohol socially and in moderation. No illicit substance use. Lauren Sebastian is his surrogate decision maker and he wishes to be a full code.
[2020-04-08 17:08] LABS: Basophils Percent Auto 0.3 % (0.2-1.2); Eosinophils Absolute Auto 0.1 K/mm3 (0-0.3); Eosinophils Percent Auto 0.9 % (0-4.4); Hemoglobin 14.9 g/dL (14.0-18.0); Immature Granulocyte Absolute 0.06 K/mm3 (0.00-0.031); Immature Granulocyte Percent A 0.5 % (0-0.5); Lymphocytes Absolute Auto 1.28 K/mm3 (0.9-3.2); Lymphocytes Percent Auto 10.1 % (18.3-44.2); Mean Corpuscular HGB Conc 33.9 g/dl (32-36); Mean Corpuscular Hemoglobin 29.6 pg (26-34); Mean Corpuscular Volume 87.3 fl (80-100); Mean Platelet Volume 10.5 fl (7.4-10.4); Monocytes Absolute Auto 0.7 K/mm3 (0.1-0.6); Monocytes Percent Auto 5.2 % (2.6-8.5); Neutrophils Absolute Auto 10.5 K/mm3 (1.3-6.7); Platelet Count Result 197 k/mm3 (150-375); Red Blood Count 5.04 M/mm3 (4.6-6.20); Red Cell Distribution Width 14.5 % (11.5-14.5); White Blood Count 12.6 K/mm3 (4.5-10.0)
[2020-04-08 17:19] LABS: Lactic Acid Reflex 1.9 mmol/L (0.7-2.1)
[2020-04-08 17:32] LABS: Anion Gap 5 mmol/L (8-16); Blood Urea Nitrogen 25 mg/dL (9-20); CRP > 9.0 mg/dL (<1.0); Calcium 9.4 mg/dL (8.4-10.2); Carbon Dioxide 30 mmol/L (22-30); Chloride 96 mmol/L (98-107); Estimated CRCL calculation 76 ml/min; Estimated Glomerular Filt Rate 50; Glucose 98 mg/dL (75-110); Potassium 4.7 mmol/L (3.4-5.0); Sodium 131 mmol/L (137-145)
[2020-04-08] MEDS: SODIUM CHLORIDE 0.9% IV 1,000 ML 999 ML IV CONT (17:49)
--- NOTE | 2020-04-08 19:30 | PM.IMHP ---
H&P: HPI History of Present Illness Date/Time: 04/08/20 19:30 Chief Complaint: Right thigh pain. Narrative: This is a 49-year-old male with coronary artery disease status post three-vessel CABG, insulin-dependent diabetes, hypertension, and hyperlipidemia who presented to the emergency department earlier today via private vehicle from home with complaints of right thigh pain. Yesterday he was not feeling well with generalized malaise, nausea, and several episodes of vomiting. Throughout the day he developed a discomfort in his right upper medial thigh which appeared erythematous and was tender to touch. Later that evening he developed sweats and had a temperature of 101.4? for which she took Tylenol. He had extra ciprofloxacin around the house that he did not finish from a recent urinary tract infection, and began taking that with some improvement over 24 hours in the erythema of the leg. His nausea and vomiting has since resolved. He came in for evaluation today as he thought he felt a knot in the thigh and was concerned for a possible clot. Venous Dopplers of the right leg were negative for DVT and I was called to admit the patient given right leg cellulitis. 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 It is also noted that his kidney function is a bit elevated from baseline, which he believes is due to dehydration from poor oral intake yesterday. He has no specific complaints at this time and denies having a fever today. He has been able to tolerate a diet today without nausea and vomiting. Of note he has a chronic wound on the plantar aspect of his right forefoot which has mild serous drainage at baseline and is unchanged. Review of Systems Review of Systems: Narrative: Twelve systems were reviewed with pertinent positives and negatives as per HPI. He believes his glucose has been under fair control. No blurry vision, polydipsia, or polyuria. He has had urinary retention the past but denies symptoms of such at this time. The patient gets anxious while hospitalized. Except as documented, all other systems were reviewed and are negative. [facility] Past Medical History Medical History (Updated 04/08/20 @ 22:07 by Loree Mckeon PA-C) Chronic ulcer of right foot due to diabetes mellitus Coronary artery disease History of myocardial infarction in November 2010. Status post three-vessel CABG in July 2015. Degenerative disc disease Depression with anxiety Dyslipidemia Gastroesophageal reflux disease History of MRSA infection History MRSA skin and soft tissue infection. History of osteomyelitis Bilateral feet requiring multiple amputations. Hypertension Insulin dependent type 2 diabetes mellitus Hemoglobin A1c was 7.8% on 03/03/2020. Ischemic cardiomyopathy Ejection fraction as low as 36%. EF 48% on echocardiogram dated 11/01/2017. Osteoarthritis Surgical History Surgical History History of appendectomy History of cataract extraction History of coronary artery bypass graft x 3 (~07/2015) History of lumbar surgery History of transmetatarsal amputation of left foot (~2009) History of transmetatarsal amputation of right foot (~2013) Status post debridement Multiple debridements over the years for diabetic foot ulcers. Family History Family History Mother , of an DE at age 42. Acute myocardial infarction Hypertension Father , from an DE at age 36. Acute myocardial infarction Diabetes mellitus Social History Social History Social History: The patient lives in
--- NOTE | 2020-04-08 21:40 | PC.NURSE ---
This patient, Sina Sebastian, was admitted to Medical Room 248-01. Patient/family oriented to hospital policies and general routines including ID bracelet, bed and alarms, visiting hours, pain management, procedures, bathroom and other care routines, personal items, smoking policy, room service/diet, and visiting hours. Information on how to activate the Rapid Response Team has been discussed. Patient/Family are encouraged to report perceived risks to care and to ask questions if they do not understand what they are told or what they should do.
[2020-04-08] MEDS: ALPRAZolam (*CRX) 0.25 MG TABLET PO (22:13)
[2020-04-08] MEDS: METOPROLOL TARTRATE 50 MG TAB PO (23:29)
[2020-04-09 01:59] VITALS: BP 103/55; PULSE 86; RESP 18; TEMP 36.4; O2SAT 98
--- NOTE | 2020-04-09 05:07 | PC.NURSE ---
Bladder scan showed 400cc's pt went to bathroom and voided and repeat scan showed zero.
[2020-04-09 05:25] LABS: Hematocrit 40.8 % (42.0-52.0); Hemoglobin 13.6 g/dL (14.0-18.0); Mean Corpuscular HGB Conc 33.3 g/dl (32-36); Mean Corpuscular Hemoglobin 29.6 pg (26-34); Mean Corpuscular Volume 88.7 fl (80-100); Mean Platelet Volume 10.4 fl (7.4-10.4); Platelet Count Result 164 k/mm3 (150-375); Red Cell Distribution Width 14.3 % (11.5-14.5); White Blood Count 9.1 K/mm3 (4.5-10.0)
[2020-04-09 05:35] VITALS: BP 112/65; PULSE 75; RESP 16; TEMP 36.5; O2SAT 100
[2020-04-09 05:46] LABS: Anion Gap 4 mmol/L (8-16); Blood Urea Nitrogen 21 mg/dL (9-20); Calcium 8.5 mg/dL (8.4-10.2); Carbon Dioxide 29 mmol/L (22-30); Chloride 96 mmol/L (98-107); Estimated CRCL calculation 77 ml/min; Estimated Glomerular Filt Rate 50; Glucose 108 mg/dL (75-110); Magnesium 1.8 mg/dL (1.6-2.3); Sodium 129 mmol/L (137-145)
[2020-04-09 08:25] LABS: Glucose Point of Care 157 (65-105)
[2020-04-09 09:16] VITALS: PULSE 77
[2020-04-09] MEDS: METOPROLOL TARTRATE 50 MG TAB PO (09:16)
[2020-04-09] MEDS: ATORVASTATIN 40 MG TABLET PO (09:16)
[2020-04-09] MEDS: FLUoxetine HCL 20 MG CAPSULE PO (09:16)
[2020-04-09] MEDS: CLOPIDOGREL BISULFATE 75 MG TABLET PO (09:17)
[2020-04-09] MEDS: EUCERIN CREAM 120 GM JAR 1 APPLIC TOPICAL (09:17)
[2020-04-09] MEDS: PANTOPRAZOLE 40 MG TABLET PO (09:17)
[2020-04-09] MEDS: SILVERGEL (ELTA) 45 ML 1 APPLIC TOPICAL (09:17)
[2020-04-09] MEDS: lisinopriL 5 MG TABLET PO (09:17)
[2020-04-09 09:58] VITALS: BP 120/63; PULSE 77; RESP 14; TEMP 36.1; O2SAT 100
[2020-04-09 10:00] VITALS: BP 114/64; PULSE 75; RESP 18; TEMP 36.3; O2SAT 100
[2020-04-09 11:10] VITALS: BP 107/67; PULSE 72; RESP 16; TEMP 36.9; O2SAT 100
--- NOTE | 2020-04-09 11:18 | PM.DS ---
DS: Admitting Diagnosis Admitting Diagnosis Admitting Diagnosis: Right leg cellulitis DS: Discharge Diagnosis Discharge Diagnosis (1) Cellulitis of right thigh: Code(s): L03.115 - Cellulitis of right lower limb Status: Acute Assessment and Plan: Date of Admission 04/08/20 Date of Discharge 04/09/20 Mr. Sebastian is a 49yo M with insulin dependent diabetes mellitus, chronic right foot diabetic ulcer who presented to the ED for evaluation of right thigh cellulitis. He described that he developed a patch on his right medial thigh that had been getting more red, painful, warm to touch over the last few days at home and was worsening. He also had associated nausea, vomiting, poor oral intake in the few days prior to arrival. He was started on IV vancomycin and imipenem per antibiotic stewardship guidelines. He was eager to leave but was agreeable to staying overnight of IV antibiotics. Redness and pain improved the following morning. Cr was slightly elevated above his baseline at 1.5 with elevated BUN. It is suspected this is related to mild dehydration with recent vomiting and poor appetite. He agrees to continue drinking plenty of fluids at home and was given an order for repeat BMP in 1 week with results to PCP to monitor kidney function. He was hemodynamically stable for discharge 04/09/20 and was heading directly to an appointment with his PCP upon discharge. Provided doxycycline and augmentin to complete the course. (2) Elevated serum creatinine: Code(s): R79.89 - Other specified abnormal findings of blood chemistry Status: Acute Assessment and Plan: Cr 1.5. Encourage oral fluids, repeat BMP 1 week, follow up PCP. (3) Chronic ulcer of right foot due to diabetes mellitus: Code(s): E11.621 - Type 2 diabetes mellitus with foot ulcer; L97.519 - Non-pressure chronic ulcer of other part of right foot with unspecified severity Status: Chronic Assessment and Plan: Seen by wound RN and does not appear to be infected at this time. (4) Insulin dependent type 2 diabetes mellitus: Code(s): E11.9 - Type 2 diabetes mellitus without complications; Z79.4 - USP (current) use of insulin Status: Chronic Assessment and Plan: Blood sugars stable. Follow up with PCP. (5) Dyslipidemia: Code(s): E78.5 - Hyperlipidemia, unspecified Status: Chronic Assessment and Plan: Continue home fenofibrate and statin therapy. DS: Summary Hospital Course Hospital Course: See above. Time Spent with Patient Time attestation: Total time spent providing and/or coordinating discharge services: 35 minutes Exam Narrative: Exam Narrative: General: Well-developed male sitting up in bedside chair in no acute distress. HEENT: PERRL, EOMI. Sclerae anicteric. Oral mucosa moist. Neck: Supple. Respiratory: Lungs are clear to auscultation bilaterally. Cardiovascular: Regular rate and rhythm with S1-S2. Gastrointestinal: Abdomen is soft, nontender, and nondistended with positive bowel sounds. Skin: Warm and dry. Irregular shaped red erythematous patch on the right medial thigh. Mild tenderness to palpation. Extremities: No cyanosis, clubbing, or edema. Status post bilateral forefoot amputations. He has a chronic open ulcer on the plantar aspect of the right forefoot, down to the muscle with no evidence to suggest infection. Neurological: Alert. Cranial nerves 2-12 are grossly intact. No gross focal deficits to casual conversation. Psychiatric: Pleasant and cooperative with normal mood and affect. DS: Data Data Completed and Pending Labs on day of discharge: Last Vital Signs Temp 98.5 F 04/09/20 11:10 Pulse 72 04/09/20 11:10 Resp 16 04/09/20
--- NOTE | 2020-04-09 18:02 | PC.NURSE ---
CALL RECEIVED FROM PT AND STATED THAT THE PHARMACIST SAID HE SHOULD NOT TAKE BOTH ANTIBIOTICS AT THE SAME TIME DUE TO N/V/D/POTENTIAL SIDE EFFECT. DR WILSON NOTIFIED AND STOPPED THE AMOXICILLIN.
== END 2020-04-09 12:20 | disposition home or self-care (01) ==
LOC: ANHED 16:09 → ANH2MED 20:07
PROVIDERS: Physician Assistant; Admitting Provider Family Medicine; Emergency Provider Emergency Medicine; PCP Physician Assistant; Visit Provider Family Medicine
DX: L03.115 Cellulitis of right lower limb (principal); E11.621 Type 2 diabetes mellitus with foot ulcer; L97.519 Non-pressure chronic ulcer of other part of right foot with unspecified severity; R79.89 Other specified abnormal findings of blood chemistry; E78.5 Hyperlipidemia, unspecified; F17.210 Nicotine dependence, cigarettes, uncomplicated; I25.10 Atherosclerotic heart disease of native coronary artery without angina pectoris; I10 Essential (primary) hypertension; M79.604 Pain in right leg; Z95.1 Presence of aortocoronary bypass graft; Z79.4 Long term (current) use of insulin; Z89.421 Acquired absence of other right toe(s); Z89.422 Acquired absence of other left toe(s)
CPT/HCPCS: 36415; 80048; 83605; 83735; 85025; 85027; 86140; 87040; 93971; 96365; 96366; 96367; 96368; 99285; A9270; G0378; J0743; J2543; J3370; J7030

== ENCOUNTER 2020-06-11 15:16 | IRF | payer BC, SELFPAY ==
[2020-06-11 15:00] VITALS: BMI 41.2
--- OUTSIDE RECORDS SUMMARY | 2020-06-11 15:22 | XMS_ITS ---
:1970 Author Care Team Providers Name Role Phone Mesfin Hsieh Primary Care Provider Unavailable Allergies Code Code System Name Reaction Severity Status Onset 2670 RxNorm Codeine ? ? Active ? Medications Name Status Start Date Stop Date ? ? amoxicillin 875 mg-potassium Completed ? clavulanate 125 mg tablet ampicillin 500 mg capsule Completed ? 2018 Take 1 capsule 4 times a day by oral route for 7 days. Aspirin Low Dose 81 mg tablet,delayed release Active ? Not available Take 1 tablet every day by oral route. atorvastatin 40 mg tablet Completed ? 2020 atorvastatin 80 mg tablet Active ? Not av ailable cefuroxime axetil 500 mg tablet Active ? Not available TAKE 1 TABLET BY MOUTH EVERY 12 HOURS cephalexin 500 mg capsule Completed ? 2017 ciprofloxacin 500 mg tablet Completed ? 03/16 TAKE 1 TABLET BY MOUTH EVERY 12 HOURS FOR 7 DAYS clindamycin HCl 300 mg capsule Completed ? 0 04/12/2020 TAKE 1 CAPSULE BY MOUTH THREE TIMES A DAY clopidogrel 75 mg tablet Active ? Not zehra ilable TAKE 1 TABLET BY MOUTH EVERY DAY cyclobenzaprine 10 mg tablet Completed ? 08/2017 diclofenac 1 % topical gel Completed ? 04/12 APPLY 2 GRAMS TO THE right elbow region BY TOPICAL ROUTE 4 TIME S PER DAY doxycycline hyclate 100 mg capsule Completed ? 10/15/2017 doxycycline hyclate 100 mg tablet Active ? Not available Take by oral route for 7 days. Evzio 2 mg/0.4 mL injection,auto-injector Completed ? 0
--- OUTSIDE RECORDS SUMMARY | 2020-06-11 15:22 | XMS_ITS | Encounter Summary ---
:1970 Author Reason for Visit Other f/u from ER/hospital Assessment and Plan Assessment Note we have requested all records be fa xed to review from hospital. 1. Cellulitis of right lower manriquez b add ceftin 500mg bid x 10 days to the doxycycline course. ? cefuroxime axetil 500 mg t ablet 2. Urinary tract infectious dise ase as above. Discussion Note: None recorded.Patient educational handouts: No information available. Plan of Care Reminders Provider Appointments None ? ? recorded. Lab None ? ? recorded. Referral None ? ? recorded. Procedures None ? ? recorded. Surgeries None ? ? recorded. Imaging None ? ? recorded. Medications Name Start Date ? ? Aspirin Low Dose 81 mg tablet,delayed release ? Take 1 tablet every day by oral route. atorvastatin 80 mg tablet ? TAKE 1 TABLET BY MOUTH EVERY DAY cefuroxime axetil 500 mg tablet ? TAKE 1 TABLET BY MOUTH EVERY 12 HOURS clopidogrel 75 mg tablet ? TAKE 1 TABLET BY MOUTH EVERY DAY doxycycline hyclate 100 mg tablet ? Take by oral route for 7 days. fenofibrate micronized 200 mg capsule ? TAKE 1 CAPSULE BY MOUTH EVERY DAY fluoxetine 2
--- NOTE | 2020-06-11 18:01 | WPDREHABHP ---
H&P: HPI History of Present Illness Date/Time: 06/11/20 18:01 Chief Complaint: Right below knee amputation Narrative: HISTORY OF PRESENT ILLNESS: The patient's primary rehab impairment category is amputation lower extremity The etiologic diagnosis is chronic right foot ulceration with osteomyelitis I saw this patient [id number] on 06/11/2020 The patient is a 49-year-old male with a past medical history of hypertension, hyperlipidemia, coronary artery disease, myocardial infarction, congestive heart failure, chronic pain, uncontrolled diabetes mellitus, and a chronic right foot ulcer is a cameron with osteomyelitis who presented to [facility] in [place] on 06/04/2020 for an elective surgery. Patient has had ongoing problematic wound issues to the right foot since September of 2019. Plastic surgery was consulted prior to patient's surgery to see if the limb could be salvaged. Plastic surgery recommended amputation. The patient underwent a right below-knee amputation on 06/04/[address] Fernandez Mayorga. Consultants for endocrinology and pain service. Postoperatively the patient experienced acute postoperative pain, hyperglycemia, acute blood loss anemia, and acute kidney injury. His pain is controlled currently with oral analgesics. Endocrinology consulted for hyperglycemia and the patient is currently on his insulin pump, Trulicity, Farxiga. Acute blood loss anemia was stabilized with current hemoglobin of 11.6. Patient's creatinine is currently 1.8 and down from 2.0. Patient will maintain nonweightbearing to the right lower extremity with use of an amputee Shield. Patient states that during surgery he experience a pinched nerve to his neck resulting in subjective right upper extremity weakness. He will be discharged to rehab on aspirin and Plavix for DVT prophylaxis. He has a follow-up appoint with Dr. Cobb on 07/23/2020 at 1:30 p.m.. COVID: The patient is not traveled outside the [place] her head contact with someone who is ill that his travel outside the [place] in the past 21 days. The patient has not traveled to an area of the [place] that is experiencing known transmission of the Coronavirus and has not had close personal contact with anyone that has. The patient does not have a fever. The patient is not experiencing lower respiratory illness symptoms. 06/11/2020 COVID test was negative Therapy was initiated at the acute care facility and the patient transferred to us from [facility] on 06/11/2020 FALLS OR SURGERIES: The patient has had major surgeries in the 100 days prior to admission. right below-knee amputation 06/04/2020 They had 2 falls in the past year. the patient has had falls with injury ] PRIOR LEVEL OF FUNCTION: Eating was [INDEPENDENT] Oral Care was [INDEPENDENT] Toileting Hygiene was [INDEPENDENT] Shower/Bathing was [INDEPENDENT] Upper Body Dressing was [INDEPENDENT] Lower Body Dressing was [INDEPENDENT] Donning/Terra Bella Footwear was [INDEPENDENT] Rolling Left and Right was [INDEPENDENT] Sit to Lying was [INDEPENDENT] Lying to Sitting was [INDEPENDENT] Sit to Stand was [INDEPENDENT] Bed to Chair Transfers was [INDEPENDENT] Toilet Transfers was [INDEPENDENT] Walking was [INDEPENDENT] [>500 feet] with [NO DEVICE] Wheelchair Mobility was [NOT APPLICABLE PRIOR TO ADMISSION] Stairs were [INDEPENDENT] CURRENT LEVEL OF FUNCTION: Eating was independent Oral Care was partial to moderate assistance Toileting Hygiene was partial to moderate assistance Shower/Bathing was partial to moderate assistance Upper Body Dressing was partial to moderate assistance Lower Body Dressing was partial to moderate assistance Donning/Terra Bella Footwear was partial to moderate assistance Rolling Left and Right was independent Sit to Lying was supervision or touching assistance Lying to Sitting was supervision or touching assistance Sit to Stand was partial to moderate assistanc
[2020-06-11 18:24] VITALS: BP 127/61; PULSE 89; RESP 20; TEMP 36.1; O2SAT 100
--- NOTE | 2020-06-11 18:25 | ADMGEN ---
This patient, Sina Sebastian, was admitted to [facility] Room 218-01. Patient/family oriented to hospital policies and general routines including ID bracelet, bed and alarms, visiting hours, pain management, procedures, bathroom and other care routines, personal items, smoking policy, room service/diet, and visiting hours. Information on how to activate the Rapid Response Team has been discussed. Patient/Family are encouraged to report perceived risks to care and to ask questions if they do not understand what they are told or what they should do. patient arrived to floor at 1500, was transported by in private auto, alert and oriented, pleasant and cooperative
[2020-06-11 19:56] VITALS: PULSE 88
[2020-06-11] MEDS: DOCUSATE SODIUM 100 MG CAPSULE PO (19:56)
[2020-06-11] MEDS: CYCLOBENZAPRINE HCL 5 MG TABLET PO (19:56)
[2020-06-11] MEDS: METOPROLOL TARTRATE 50 MG TAB PO (19:56)
[2020-06-11] MEDS: ACETAMINOPHEN 500 MG TABLET 1000 MG PO (19:56)
[2020-06-11 22:00] VITALS: BP 121/69; PULSE 88; RESP 18; TEMP 36.9; O2SAT 97
[2020-06-12] MEDS: ACETAMINOPHEN 500 MG TABLET 1000 MG PO ×5 (00:09→23:48)
[2020-06-12 05:34] LABS: Basophils Absolute Auto 0.1 K/mm3 (0.0-0.1); Eosinophils Absolute Auto 0.4 K/mm3 (0-0.3); Eosinophils Percent Auto 4.7 % (0-4.4); Hematocrit 35.5 % (42.0-52.0); Hemoglobin 11.5 g/dL (14.0-18.0); Immature Granulocyte Absolute 0.02 K/mm3 (0.00-0.031); Immature Granulocyte Percent A 0.3 % (0-0.5); Lymphocytes Absolute Auto 2.24 K/mm3 (0.9-3.2); Lymphocytes Percent Auto 28.5 % (18.3-44.2); Mean Corpuscular HGB Conc 32.4 g/dl (32-36); Mean Corpuscular Hemoglobin 28.4 pg (26-34); Mean Corpuscular Volume 87.7 fl (80-100); Monocytes Absolute Auto 0.5 K/mm3 (0.1-0.6); Monocytes Percent Auto 6.7 % (2.6-8.5); Neutrophils Absolute Auto 4.6 K/mm3 (1.3-6.7); Neutrophils Percent Auto 58.8 % (45.5-73.1); Platelet Count Result 273 k/mm3 (150-375); Red Blood Count 4.05 M/mm3 (4.6-6.20); White Blood Count 7.9 K/mm3 (4.5-10.0)
[2020-06-12 05:55] LABS: Alanine Aminotransferase 41 U/L (4-50); Albumin Level 3.5 g/dL (3.5-5.1); Alkaline Phosphatase 81 U/L (38-126); Anion Gap 3 mmol/L (8-16); Aspartate Amino Transferase 54 U/L (17-59); Bilirubin,Total 0.4 mg/dL (0.2-1.3); Blood Urea Nitrogen 28 mg/dL (9-20); Calcium 8.7 mg/dL (8.4-10.2); Carbon Dioxide 31 mmol/L (22-30); Chloride 102 mmol/L (98-107); Estimated CRCL calculation 76 ml/min; Estimated Glomerular Filt Rate 50; Glucose 133 mg/dL (75-110); Sodium 136 mmol/L (137-145)
[2020-06-12 06:00] VITALS: BP 115/67; PULSE 78; RESP 16; TEMP 35.9; O2SAT 100
[2020-06-12 08:00] VITALS: PULSE 78; RESP 16; O2SAT 100
[2020-06-12 08:19] VITALS: PULSE 78
[2020-06-12] MEDS: ATORVASTATIN 40 MG TABLET 80 MG PO (08:19)
[2020-06-12] MEDS: CLOPIDOGREL BISULFATE 75 MG TABLET PO (08:19)
[2020-06-12] MEDS: PANTOPRAZOLE 40 MG TABLET PO (08:19)
[2020-06-12] MEDS: ASPIRIN 81 MG ENTERIC TABLET PO (08:19)
[2020-06-12] MEDS: METOPROLOL TARTRATE 50 MG TAB PO ×2 (08:19→17:31)
[2020-06-12] MEDS: CHOLECALCIFEROL 1,000 UNITS TABLET 5000 UNITS PO (08:19)
[2020-06-12] MEDS: FLUoxetine HCL 20 MG CAPSULE PO (08:20)
[2020-06-12] MEDS: DOCUSATE SODIUM 100 MG CAPSULE PO ×2 (08:20→21:32)
[2020-06-12] MEDS: CYCLOBENZAPRINE HCL 5 MG TABLET PO ×3 (08:20→17:31)
[2020-06-12] MEDS: FUROSEMIDE 40 MG TABLET PO (08:20)
[2020-06-12 12:54] VITALS: BMI 41.2
--- NOTE | 2020-06-12 13:22 | WPDNEURORHBP ---
Subjective Date/time seen: 06/12/20 13:22 Interval history: 49-year-old gentleman past medical history of hypertension, hyperlipidemia, coronary artery disease, myocardial infarction, congestive heart failure, chronic pain, uncontrolled diabetic mellitus and chronic foot ulcer who underwent on 06/04/2020 ill an elective right below-knee amputation due to osteomyelitis. Patient complains of inability to sleep. He does not want any meds for sleep at this time. Review of Systems Review of Systems: All systems reviewed & are unremarkable except as noted in HPI and below Exam Narrative: Exam Narrative: Head is normocephalic. Glasses are noted. Speech is fluent. Cognition is intact. Extraocular muscles are intact. General appearance is obesity pleasant. Heart rate and rhythm is regular. Lungs are clear to auscultation. Well-healed CABG scars noted to the chest wall. Abdomen is obese. With positive bowel sounds. Bilateral right upper extremity strength is 4/5 left upper extremity strength is 4+ out of 5 left lower extremity strength is 4+ out of 5 transmetatarsal amputation is noted to left lower extremity Sitting balance is good. RUE with good motor recovery. From examiner standpoint muscle test is WNL Objective Data Vital Signs Vital Signs: Vital Signs - 24 hr 06/11/20 18:24 06/11/20 19:56 06/11/20 22:00 Temperature 36.1 C L 36.9 C Pulse Rate 89 88 88 Respiratory Rate 20 18 Blood Pressure 127/61 121/69 Pulse Oximetry 100 97 06/12/20 06:00 06/12/20 08:00 06/12/20 08:19 Temperature 35.9 C L Pulse Rate 78 78 78 Respiratory Rate 16 16 Blood Pressure 115/67 Pulse Oximetry 100 100 Intake/Output Intake/Output: Intake & Output 06/09/20 06/10/20 06/11/20 06/12/20 23:59 23:59 23:59 23:59 Intake Total 840 Balance 840 Meds/Results Medications: Active Medications Generic Name Dose Route Start Last Admin Trade Name Freq PRN Reason Stop Dose Admin Acetaminophen 1,000 mg 06/11/20 18:00 06/12/20 11:59 Acetaminophen 500 Mg Tablet PO 1,000 mg Q6H EDUARDO Administration Aspirin 81 mg 06/12/20 09:00 06/12/20 08:19 Aspirin 81 Mg Enteric Tablet PO 81 mg DAILY EDUARDO Administration Atorvastatin Calcium 80 mg 06/12/20 09:00 06/12/20 08:19 Atorvastatin 40 Mg Tablet PO 80 mg DAILY EDUARDO Administration Clopidogrel Bisulfate 75 mg 06/12/20 09:00 06/12/20 08:19 Clopidogrel Bisulfate 75 Mg Tablet PO 75 mg DAILY EDUARDO Administration Cyclobenzaprine HCl 5 mg 06/11/20 17:00 06/12/20 11:59 Cyclobenzaprine Hcl 5 Mg Tablet PO 5 mg TID EDUARDO Administration Dextrose 12.5 gm 06/11/20 17:45 Dextrose 50% 25 Gm/50 Ml Syringe IV PUSH PRN PRN Hypoglycemia Protocol Docusate Sodium 100 mg 06/11/20 21:00 06/12/20 08:20 Docusate Sodium 100 Mg Capsule PO 100 mg Q12HR EDUARDO Administration Fluoxetine HCl 20 mg 06/12/20 09:00 06/12/20 08:20 Fluoxetine Hcl 20 Mg Capsule PO 20 mg DAILY EDUARDO Administration Furosemide 40 mg 06/12/20 09:00 06/12/20 08:20 Furosemide 40 Mg Tablet PO 40 mg DAILY EDUARDO Administration Glucagon 1 mg 06/11/20 17:45 Glucagon For Inj 1 Mg Vial IM PRN PRN Hypoglycemia Protocol Glucose 15 gm 06/11/20 17:45 Glucose Oral Gel 15 Gm Of Glucse In 37.5 Gm Tube PO PRN PRN Hypoglycemia Protocol Dextrose 1,000 mls @ 100 mls/hr 06/11/20 17:45 Dextrose 5% 1,000 Ml IVPB PRN PRN Hypoglycemia Protocol Metoprolol Tartrate 50 mg 06/11/20 17:00 06/12/20 08:19 Metoprolol Tartrate 50 Mg Tab PO 50 mg BIDWM EDUARDO Administration Non-Formulary Medication 10 mg 06/12/20 09:00 Dapagliflozin PO 07/12/20 09:01 DAILY [facility] Non-Formulary Medication 3 mg 06/18/20 09:00 Dulaglutide [Trulicity] SUB-Q 07/18/20 09:01 WEEKLY [facility] Non-Formulary Medication 200 mg 06/12/20 09:00 Fenofibrate Micronized PO 07/12/20 09:01 DAILY [facility]
--- NOTE | 2020-06-12 13:30 | PCNSR ---
On 06/12/20, the student, Lorraine Merritt, provided care and completed [facility] documentation on this patient. I have reviewed the student's documentation and agree with the findings.
[2020-06-12 14:00] VITALS: BP 126/63; PULSE 82; RESP 20; TEMP 36.6; O2SAT 100
[2020-06-12 17:31] VITALS: PULSE 82
[2020-06-12 20:29] VITALS: BP 127/68; PULSE 69; RESP 22; TEMP 36.1; O2SAT 99
[2020-06-13 05:31] VITALS: BP 132/67; PULSE 67; RESP 20; TEMP 36.2; O2SAT 100
[2020-06-13] MEDS: ACETAMINOPHEN 500 MG TABLET 1000 MG PO ×4 (06:25→23:13)
--- NOTE | 2020-06-13 09:47 | PCPTNOTE ---
Snia Sebastian was evaluated for a wheeled walker on 06/13/2020 by this physical therapist. The wheeled walker will resolve patient's mobility limitations and will be used for ADL's within the home. The patient can safely use the wheeled walker. ?The wheeled walker will resolve the patient?s mobility deficits, including impaired balance, impaired generalized strength, impaired functional activity tolerance, and acute right below knee amputation. Patient would highly benefit standard walker leg attachments in order to use when ascending/descending stairs to enter his home. Liz Anton, PT, DPT
--- NOTE | 2020-06-13 09:50 | PCPTNOTE ---
Liz Anton PT completed an inpatient rehab wheelchair evaluation on Sina Sebastian on 06/13/2020. The patient is unable to safely and independently ambulate household distances due to their current impairments. Their diagnosis is Rt. BKA and their impairments include decreased strength, decreased endurance, decreased balance, lower extremity weakness, and newly diagnosed right below knee amputation. Mr. Sebastian's weight bearing status is left lower extremity non-weightbearing given new below knee amputation, and right lower extremity full weightbearing. The patient demonstrates significant functional mobility limitations that impair their ability to participate in mobility-related activities of daily living (MRADLs), including toileting, feeding, dressing, grooming, and bathing in the customary locations in the home. These limitations cannot be sufficiently resolved by the use of an appropriately fitted cane or walker. It is recommended that the patient utilize a wheelchair for functional mobility within the home in order to facilitate optimal safety, independence and participation in all MRADL's and adequately access their home environment on a regular basis. The patient's home provides adequate access between rooms, maneuvering space, and surfaces to accommodate the recommended wheelchair. The use of a wheelchair for functional mobility is strongly recommended and the patient is receptive to using the wheelchair. The use of this wheelchair will significantly improve the patient's ability to participate in MRADLS and the patient will use it on a regular basis in the home. This will facilitate optimal safety, independence, and participation. The patient has demonstrated sufficient physical and mental capabilities needed to safely propel a manual wheelchair that is provided in the home during a typical day. Recommended Wheelchair Frame: Extra Heavy Duty (patient is 304 lbs, height 6' requiring a wheelchair seat to floor height >than 18 in order to accommodate patient's height Recommended Wheelchair Size: 24 x 20 (patient's anatomical hip width = 22 ) Recommended Wheelchair Cushion:STANDARD Wheelchair Leg Recommendations: RIGHT residual limb rest for below knee amputation; LEFT swing away leg rest -An extra heavy duty wheelchair is recommended because the patient weighs more than 300 pounds. Their height is 6 feet and their weight is 304 pounds. -Anti-tippers are recommended due to patient demonstrating increased risk for falls. They would benefit from anti-tippers with added safety and stabilization. Liz Anton PT, DPT ____4/1/21 Evaluating Therapist Date I agree with and certify that the above recommendation is medically necessary. Referring Physician Date
[2020-06-13 09:51] VITALS: PULSE 67
[2020-06-13] MEDS: METOPROLOL TARTRATE 50 MG TAB PO ×2 (09:51→17:19)
[2020-06-13] MEDS: ASPIRIN 81 MG ENTERIC TABLET PO (09:52)
[2020-06-13] MEDS: PANTOPRAZOLE 40 MG TABLET PO (09:52)
[2020-06-13] MEDS: CYCLOBENZAPRINE HCL 5 MG TABLET PO ×3 (09:52→17:19)
[2020-06-13] MEDS: ATORVASTATIN 40 MG TABLET 80 MG PO (09:52)
[2020-06-13] MEDS: FLUoxetine HCL 20 MG CAPSULE PO (09:52)
[2020-06-13] MEDS: CLOPIDOGREL BISULFATE 75 MG TABLET PO (09:52)
[2020-06-13] MEDS: FUROSEMIDE 40 MG TABLET PO (09:52)
[2020-06-13] MEDS: CHOLECALCIFEROL 1,000 UNITS TABLET 5000 UNITS PO (09:52)
--- NOTE | 2020-06-13 10:49 | WPDNEURORHBP ---
Subjective Date/time seen: 06/13/20 10:49 Interval history: 49-year-old gentleman past medical history of hypertension, hyperlipidemia, coronary artery disease, myocardial infarction, congestive heart failure, chronic pain, uncontrolled diabetic mellitus and chronic foot ulcer who underwent on 06/04/2020 an elective right below-knee amputation due to osteomyelitis. Patient complains of inability to sleep. He is receptive to Melatonin for sleep. Patient is appreciative of staff. Review of Systems Review of Systems: All systems reviewed & are unremarkable except as noted in HPI and below Functional Status Ambulation Ability Ability to Ambulate 10 Feet: Minimum Assistance X 1 Ambulation Assistive Devices: Walker, Wheeled Exam Narrative: Exam Narrative: Head is normocephalic. Glasses are noted. Speech is fluent. Cognition is intact. Extraocular muscles are intact. Pleasant. Heart rate and rhythm is regular. Lungs are clear to auscultation. Well-healed CABG scars noted to the chest wall. Abdomen is obese. With positive bowel sounds. Bilateral right upper extremity strength is 4/5 left upper extremity strength is 4+ out of 5 left lower extremity strength is 4+ out of 5 transmetatarsal amputation is noted to left lower extremity Sitting balance is good. RUE with good motor recovery. From examiner standpoint muscle test is WNL Patient tends to hold his breath and rushes during gait and transfers. Objective Data Vital Signs Vital Signs: Vital Signs - 24 hr 06/12/20 14:00 06/12/20 17:31 06/12/20 20:29 Temperature 36.6 C 36.1 C L Pulse Rate 82 82 69 Respiratory Rate 20 22 H Blood Pressure 126/63 127/68 Pulse Oximetry 100 99 06/13/20 05:31 06/13/20 09:51 Temperature 36.2 C L Pulse Rate 67 67 Respiratory Rate 20 Blood Pressure 132/67 Pulse Oximetry 100 Intake/Output Intake/Output: Intake & Output 06/10/20 06/11/20 06/12/20 06/13/20 23:59 23:59 23:59 23:59 Intake Total 1080 240 Balance 1080 240 Meds/Results Medications: Active Medications Generic Name Dose Route Start Last Admin Trade Name Freq PRN Reason Stop Dose Admin Acetaminophen 1,000 mg 06/11/20 18:00 06/13/20 06:25 Acetaminophen 500 Mg Tablet PO 1,000 mg Q6H EDUARDO Administration Aspirin 81 mg 06/12/20 09:00 06/13/20 09:52 Aspirin 81 Mg Enteric Tablet PO 81 mg DAILY EDUARDO Administration Atorvastatin Calcium 80 mg 06/12/20 09:00 06/13/20 09:52 Atorvastatin 40 Mg Tablet PO 80 mg DAILY EDUARDO Administration Clopidogrel Bisulfate 75 mg 06/12/20 09:00 06/13/20 09:52 Clopidogrel Bisulfate 75 Mg Tablet PO 75 mg DAILY EDUARDO Administration Cyclobenzaprine HCl 5 mg 06/11/20 17:00 06/13/20 09:52 Cyclobenzaprine Hcl 5 Mg Tablet PO 5 mg TID EDUARDO Administration Dextrose 12.5 gm 06/11/20 17:45 Dextrose 50% 25 Gm/50 Ml Syringe IV PUSH PRN PRN Hypoglycemia Protocol Docusate Sodium 100 mg 06/11/20 21:00 06/13/20 09:56 Docusate Sodium 100 Mg Capsule PO Not Given Q12HR [facility] Fluoxetine HCl 20 mg 06/12/20 09:00 06/13/20 09:52 Fluoxetine Hcl 20 Mg Capsule PO 20 mg DAILY EDUARDO Administration Furosemide 40 mg 06/12/20 09:00 06/13/20 09:52 Furosemide 40 Mg Tablet PO 40 mg DAILY EDUARDO Administration Glucagon 1 mg 06/11/20 17:45 Glucagon For Inj 1 Mg Vial IM PRN PRN Hypoglycemia Protocol Glucose 15 gm 06/11/20 17:45 Glucose Oral Gel 15 Gm Of Glucse In 37.5 Gm Tube PO PRN PRN Hypoglycemia Protocol Dextrose 1,000 mls @ 100 mls/hr 06/11/20 17:45 Dextrose 5% 1,000 Ml IVPB PRN PRN Hypoglycemia Protocol Metoprolol Tartrate 50 mg 06/11/20 17:00 06/13/20 09:51 Metoprolol Tartrate 50 Mg Tab PO 50 mg BIDWM EDUARDO Administration Non-Formulary Medication 10 mg 06/12/20 09:00 Dapagliflozin PO 07/12/20 09:01 DAILY [facility] Non-Formulary Medication 3 mg 06/18/20 09:00 Dulag
[2020-06-13] MEDS: FENOFIBRATE NANOCRYSTALLIZED 145 MG TABLET PO (11:54)
[2020-06-13 11:57] LABS: Glucose Point of Care 101 (65-105)
--- NOTE | 2020-06-13 13:46 | RPD ---
INDIVIDUALIZED PLAN OF CARE FOR Sina Sebastian Brief Synthesis of Pre-Admission Screen, Post-Admission Evaluation and Therapy Evaluations: The patient presents to rehab with chronic right foot ulceration with osteomyelitis status post right below knee amputation. Comorbidities include uncontrolled diabetes mellitus, acute postoperative pain, acute blood loss anemia, hypertension, hyperlipidemia, coronary artery disease, and congestive heart failure. The complexity of the patient's medical management, nursing, and therapy needs require an inpatient rehab hospital stay with a physician-led interdisciplinary team approach. The patient?s needs will be best met in an intensive program vs. at a lower level of care. The patient requires physician services for medical oversight, management of post-op complications in the setting of present comorbidities, management of uncontrolled diabetes mellitus diagnosis, and pain management. Post-op complications have included hyperglycemia, acute kidney injury, acute blood loss anemia, and acute pain. The patient requires nursing services for anticoagulation therapy, diabetes training, DVT prophylactics, infection protection, medication management and education, pressure relief, and wound care. The patient will be taught how to wrap the residual limb and how to monitor their skin for promotion of healing. Deficits include: ADLs, Balance, Endurance, Family Training/Education, Mobility, Pain Management, ROM, Safety, Strength, and Transfers. Senior Web Services Developer/Case Management for: Discharge Planning and Patient/Family Counseling Physical Therapy: 5 days per week for 90 minutes. Treatments may include: Therapeutic Exercise, Gait Training, Neuromuscular Re-education, Transfer Training, Community Reintegration, Bed Mobility, Patient/Family Education, Wheelchair Mobility Group Therapy/Concurrent Therapy Rationales: -Improve attention span during functional activities in a distracted environment. -Enhance problem solving and/or adequate judgment skills during functional activities in a distracted environment. -Promote increased safety awareness in a distracted environment to reduce fall risk with functional tasks, transfers, and ambulation to allow a more safe, self-sufficient return to the home environment. -Improve dynamic balance skills to promote safety and independence with functional activities in a distracted environment for maximum gain. Occupational Therapy: 5 days per week for 90 minutes. Treatments may include: Therapeutic Exercise, Therapeutic Activity, Cognitive Training, Self-Care Transfer Training, Community Reintegration, Home Management, Patient/Family Education, Wheelchair Mobility Training, Energy Conservation Training Group Therapy/Concurrent Therapy Rationales: -Allow therapist to observe and teach generalization and carry-over of skills learned in individual therapy. -Enhance problem solving and sequencing skills during therapeutic activities in a distracted environment. -Promote increased safety awareness in a realistic setting to reduce fall risk with functional tasks due to visual and verbal distractions. -Increase functional level with ADLs, ADL transfers and use of adaptive equipment through therapeutic activities with others while promoting safety to allow a more safe, self-sufficient return home. Medical Prognosis: Good Anticipated Length of Stay: 7 days Rehab Goals: Eating Goal: 06-Independent Oral Hygiene Goal: 06-Independent Toileting Hygiene Goal: 06-Independent Shower/Bathe Self Goal: 06-Independent Upper Body Dressing Goal: 06-Independent Lower Body Dressing Goal: 06-Independent Putting On/Taking Off Footwear Goal: 06-Independent Rolling Left and Right Goal: 06-Independent Sit to Lying Goal: 06-Independent Lying to Sitting on Side of Bed Goal: 06-Independent Sit to Stand Goal: 06-Independent Chair/Xpr-iz-Umtps Transfer Goal: 06-Independent Toilet Transfer Goal: 06-Independent Car Transfer Goal: 06
[2020-06-13 14:00] VITALS: BP 131/59; PULSE 75; RESP 14; TEMP 36.2; O2SAT 99
[2020-06-13 16:44] LABS: Glucose Point of Care 96 (65-105)
[2020-06-13 17:19] VITALS: PULSE 75
[2020-06-13] MEDS: MELATONIN 5 MG TABLET PO (20:02)
[2020-06-13 20:51] VITALS: BP 139/58; PULSE 77; RESP 22; TEMP 35.9; O2SAT 100
--- NOTE | 2020-06-13 21:56 | PHAR ---
PHARMACY VERIFIED HOME MED: Dulaglutide [Trulicity] 3 mg/0.5 mL Pen Injector *USE FROM HOME*
[2020-06-13 22:17] LABS: Glucose Point of Care 96 (65-105)
[2020-06-13 22:17] LABS: Glucose Point of Care 70 (65-105)
--- NOTE | 2020-06-13 22:29 | PC.NURSE ---
1999 When I questioned the patient about the Trulicity that he was suppose to take from home he stated that he gave it to himself a couple of hours ago. I asked him if he still had it because I needed to send it down to pharmacy to verify. He stated that he did and he proceeded to take it out of the trash can. I then sent it down to pharmacy. The patient's also brought in U-500 insulin for his insulin pump and the patient put that in his pump earlier this evening before pharmacy was able to verify. I asked the patient if his could bring that in tomorrow and the patient said that she could so that pharmacy could verify. [id number] I contacted the rooming house inspector, Radha and asked her about this too and she also stated that that was all that we could do is to have her bring that in tomorrow to verify.
--- NOTE | 2020-06-14 04:15 | PC.NURSE ---
Patient gave himself 1.5mg/0.5 ml of the Trulicity yesterday evening 06/13/20 1800.
[2020-06-14 05:27] VITALS: BP 150/62; PULSE 72; RESP 22; TEMP 35.9; O2SAT 100
[2020-06-14] MEDS: ACETAMINOPHEN 500 MG TABLET 1000 MG PO ×3 (06:21→17:20)
[2020-06-14 06:39] LABS: Glucose Point of Care 218 (65-105)
[2020-06-14] MEDS: ATORVASTATIN 40 MG TABLET 80 MG PO (08:38)
[2020-06-14] MEDS: DOCUSATE SODIUM 100 MG CAPSULE PO ×2 (08:38→20:26)
[2020-06-14 08:39] VITALS: PULSE 72
[2020-06-14] MEDS: CYCLOBENZAPRINE HCL 5 MG TABLET PO ×3 (08:39→17:19)
[2020-06-14] MEDS: CHOLECALCIFEROL 1,000 UNITS TABLET 5000 UNITS PO (08:39)
[2020-06-14] MEDS: ASPIRIN 81 MG ENTERIC TABLET PO (08:39)
[2020-06-14] MEDS: METOPROLOL TARTRATE 50 MG TAB PO ×2 (08:39→17:19)
[2020-06-14] MEDS: FLUoxetine HCL 20 MG CAPSULE PO (08:39)
[2020-06-14] MEDS: CLOPIDOGREL BISULFATE 75 MG TABLET PO (08:40)
[2020-06-14] MEDS: FUROSEMIDE 40 MG TABLET PO (08:40)
[2020-06-14] MEDS: PANTOPRAZOLE 40 MG TABLET PO (08:40)
[2020-06-14] MEDS: FENOFIBRATE NANOCRYSTALLIZED 145 MG TABLET PO (08:40)
[2020-06-14 11:52] LABS: Glucose Point of Care 140 (65-105)
[2020-06-14 14:00] VITALS: BP 144/60; PULSE 85; RESP 20; TEMP 35.7; O2SAT 100
[2020-06-14 17:18] LABS: Glucose Point of Care 191 (65-105)
[2020-06-14 17:19] VITALS: PULSE 85
--- NOTE | 2020-06-14 17:41 | WPDNEURORHBP ---
Subjective Date/time seen: 06/14/20 17:41 Interval history: 49-year-old gentleman past medical history of hypertension, hyperlipidemia, coronary artery disease, myocardial infarction, congestive heart failure, chronic pain, uncontrolled diabetic mellitus and chronic foot ulcer who underwent on 06/04/2020 an elective right below-knee amputation due to osteomyelitis. Patient wanting to go home on [facility] to be with family. Review of Systems Review of Systems: All systems reviewed & are unremarkable except as noted in HPI and below Functional Status Ambulation Ability Ability to Ambulate 10 Feet: Standby Assistance Ambulation Assistive Devices: Walker, Wheeled Transfers Ability Ability to Transfer In/Out of Chair: Standby Assistance Exam Narrative: Exam Narrative: Head is normocephalic. Glasses are noted. Speech is fluent. Cognition is intact. Extraocular muscles are intact. Pleasant. Heart rate and rhythm is regular. Lungs are clear to auscultation. Well-healed CABG scars noted to the chest wall. Abdomen is obese. With positive bowel sounds. Bilateral right upper extremity strength is 4/5 left upper extremity strength is 4+ out of 5 left lower extremity strength is 4+ out of 5 transmetatarsal amputation is noted to left lower extremity Sitting balance is good. RUE with good motor recovery. From examiner standpoint muscle test is WNL Patient much better with breath support. Patient is not rushing as much during gait and transfers. Objective Data Vital Signs Vital Signs: Vital Signs - 24 hr 06/13/20 20:51 06/14/20 05:27 06/14/20 08:39 Temperature 35.9 C L 35.9 C L Pulse Rate 77 72 72 Respiratory Rate 22 H 22 H Blood Pressure 139/58 L 150/62 H Pulse Oximetry 100 100 06/14/20 14:00 06/14/20 17:19 Temperature 35.7 C L Pulse Rate 85 85 Respiratory Rate 20 Blood Pressure 144/60 H Pulse Oximetry 100 Intake/Output Intake/Output: Intake & Output 06/11/20 06/12/20 06/13/20 06/14/20 23:59 23:59 23:59 23:59 Intake Total 1080 480 480 Balance 1080 480 480 Meds/Results Medications: Active Medications Generic Name Dose Route Start Last Admin Trade Name Freq PRN Reason Stop Dose Admin Acetaminophen 1,000 mg 06/11/20 18:00 06/14/20 17:20 Acetaminophen 500 Mg Tablet PO 1,000 mg Q6H EDUARDO Administration Aspirin 81 mg 06/12/20 09:00 06/14/20 08:39 Aspirin 81 Mg Enteric Tablet PO 81 mg DAILY EDUARDO Administration Atorvastatin Calcium 80 mg 06/12/20 09:00 06/14/20 08:38 Atorvastatin 40 Mg Tablet PO 80 mg DAILY EDUARDO Administration Clopidogrel Bisulfate 75 mg 06/12/20 09:00 06/14/20 08:40 Clopidogrel Bisulfate 75 Mg Tablet PO 75 mg DAILY EDUARDO Administration Cyclobenzaprine HCl 5 mg 06/11/20 17:00 06/14/20 17:19 Cyclobenzaprine Hcl 5 Mg Tablet PO 5 mg TID EDUARDO Administration Dextrose 12.5 gm 06/11/20 17:45 Dextrose 50% 25 Gm/50 Ml Syringe IV PUSH PRN PRN Hypoglycemia Protocol Docusate Sodium 100 mg 06/11/20 21:00 06/14/20 08:38 Docusate Sodium 100 Mg Capsule PO 100 mg Q12HR EDUARDO Administration Fenofibrate 145 mg 06/13/20 09:00 06/14/20 08:40 Fenofibrate Nanocrystallized 145 Mg Tablet PO 07/12/20 09:01 145 mg DAILY EDUARDO Administration Fluoxetine HCl 20 mg 06/12/20 09:00 06/14/20 08:39 Fluoxetine Hcl 20 Mg Capsule PO 20 mg DAILY EDUARDO Administration Furosemide 40 mg 06/12/20 09:00 06/14/20 08:40 Furosemide 40 Mg Tablet PO 40 mg DAILY EDUARDO Administration Glucagon 1 mg 06/11/20 17:45 Glucagon For Inj 1 Mg Vial IM PRN PRN Hypoglycemia Protocol Glucose 15 gm 06/11/20 17:45 Glucose Oral Gel 15 Gm Of Glucse In 37.5 Gm Tube PO PRN PRN Hypoglycemia Protocol Dextrose 1,000 mls @ 100 mls/hr 06/11/20 17:45 Dextrose 5% 1,000 Ml IVPB PRN PRN Hypoglycemia Protocol Melatonin 5 mg 06/13/20 21:00 06/13/20 20:02 Melatonin 5 Mg
[2020-06-14 20:00] VITALS: PULSE 73; RESP 18; O2SAT 99
[2020-06-14] MEDS: MELATONIN 5 MG TABLET PO (20:20)
[2020-06-14 20:40] LABS: Glucose Point of Care 158 (65-105)
[2020-06-14 21:26] VITALS: BP 130/55; PULSE 73; RESP 18; TEMP 36; O2SAT 99
[2020-06-15 05:14] VITALS: BP 141/77; PULSE 66; RESP 16; TEMP 36.1; O2SAT 96
[2020-06-15] MEDS: ACETAMINOPHEN 500 MG TABLET 1000 MG PO ×3 (06:29→17:07)
[2020-06-15 06:37] LABS: Glucose Point of Care 178 (65-105)
[2020-06-15 08:41] VITALS: PULSE 66
[2020-06-15] MEDS: FENOFIBRATE NANOCRYSTALLIZED 145 MG TABLET PO (08:41)
[2020-06-15] MEDS: FLUoxetine HCL 20 MG CAPSULE PO (08:41)
[2020-06-15] MEDS: CYCLOBENZAPRINE HCL 5 MG TABLET PO (08:41)
[2020-06-15] MEDS: METOPROLOL TARTRATE 50 MG TAB PO ×2 (08:41→17:07)
[2020-06-15] MEDS: PANTOPRAZOLE 40 MG TABLET PO (08:41)
[2020-06-15] MEDS: FUROSEMIDE 40 MG TABLET PO (08:41)
[2020-06-15] MEDS: CLOPIDOGREL BISULFATE 75 MG TABLET PO (08:42)
[2020-06-15] MEDS: ASPIRIN 81 MG ENTERIC TABLET PO (08:42)
[2020-06-15] MEDS: ATORVASTATIN 40 MG TABLET 80 MG PO (08:42)
[2020-06-15] MEDS: CHOLECALCIFEROL 1,000 UNITS TABLET 5000 UNITS PO (08:42)
--- NOTE | 2020-06-15 09:13 | WPDNEURORHBP ---
Subjective Date/time seen: 06/15/20 09:13 Interval history: 49-year-old gentleman past medical history of hypertension, hyperlipidemia, coronary artery disease, myocardial infarction, congestive heart failure, chronic pain, uncontrolled diabetic mellitus and chronic foot ulcer who underwent on 06/04/2020 an elective right below-knee amputation due to osteomyelitis. Patient wanting to go home on [facility] to be with family. Patient and feel prepared to go home tomorrow. Review of Systems Review of Systems: All systems reviewed & are unremarkable except as noted in HPI and below Functional Status Ambulation Ability Ability to Ambulate 10 Feet: Standby Assistance Ambulation Assistive Devices: Walker, Wheeled Transfers Ability Ability to Transfer In/Out of Chair: Standby Assistance Exam Narrative: Exam Narrative: Head is normocephalic. Glasses are noted. Speech is fluent. Cognition is intact. Extraocular muscles are intact. Pleasant. Heart rate and rhythm is regular. Lungs are clear to auscultation. Well-healed CABG scars noted to the chest wall. Abdomen is obese. With positive bowel sounds. Bilateral right upper extremity strength is 4/5 left upper extremity strength is 4+ out of 5 left lower extremity strength is 4+ out of 5 transmetatarsal amputation is noted to left lower extremity. Stump is shrinking. Rich and sutures present. Good approximation. Drain site continues to have small blood drainage. Sitting balance is good. RUE with good motor recovery. From examiner standpoint muscle test is WNL Patient much better with breath support. Patient is not rushing as much during gait and transfers. Objective Data Vital Signs Vital Signs: Vital Signs - 24 hr 06/14/20 14:00 06/14/20 17:19 06/14/20 20:00 Temperature 35.7 C L Pulse Rate 85 85 73 Respiratory Rate 20 18 Blood Pressure 144/60 H Pulse Oximetry 100 99 06/14/20 21:26 06/15/20 05:14 06/15/20 08:41 Temperature 36.0 C L 36.1 C L Pulse Rate 73 66 66 Respiratory Rate 18 16 Blood Pressure 130/55 L 141/77 H Pulse Oximetry 99 96 Intake/Output Intake/Output: Intake & Output 06/12/20 06/13/20 06/14/20 06/15/20 23:59 23:59 23:59 23:59 Intake Total 1080 480 480 240 Balance 1080 480 480 240 Meds/Results Medications: Active Medications Generic Name Dose Route Start Last Admin Trade Name Freq PRN Reason Stop Dose Admin Acetaminophen 1,000 mg 06/11/20 18:00 06/15/20 06:29 Acetaminophen 500 Mg Tablet PO 1,000 mg Q6H EDUARDO Administration Aspirin 81 mg 06/12/20 09:00 06/15/20 08:42 Aspirin 81 Mg Enteric Tablet PO 81 mg DAILY EDUARDO Administration Atorvastatin Calcium 80 mg 06/12/20 09:00 06/15/20 08:42 Atorvastatin 40 Mg Tablet PO 80 mg DAILY EDUARDO Administration Clopidogrel Bisulfate 75 mg 06/12/20 09:00 06/15/20 08:42 Clopidogrel Bisulfate 75 Mg Tablet PO 75 mg DAILY EDUARDO Administration Dextrose 12.5 gm 06/11/20 17:45 Dextrose 50% 25 Gm/50 Ml Syringe IV PUSH PRN PRN Hypoglycemia Protocol Docusate Sodium 100 mg 06/11/20 21:00 06/15/20 08:41 Docusate Sodium 100 Mg Capsule PO 100 mg Q12HR EDUARDO Administration Fenofibrate 145 mg 06/13/20 09:00 06/15/20 08:41 Fenofibrate Nanocrystallized 145 Mg Tablet PO 07/12/20 09:01 145 mg DAILY EDUARDO Administration Fluoxetine HCl 20 mg 06/12/20 09:00 06/15/20 08:41 Fluoxetine Hcl 20 Mg Capsule PO 20 mg DAILY EDUARDO Administration Furosemide 40 mg 06/12/20 09:00 06/15/20 08:41 Furosemide 40 Mg Tablet PO 40 mg DAILY EDUARDO Administration Glucagon 1 mg 06/11/20 17:45 Glucagon For Inj 1 Mg Vial IM PRN PRN Hypoglycemia Protocol Glucose 15 gm 06/11/20 17:45 Glucose Oral Gel 15 Gm Of Glucse In 37.5 Gm Tube PO PRN PRN Hypoglycemia Protocol Dextrose 1,000 mls @ 100 mls/hr 06/11/20 17:45 Dextrose 5% 1,000 Ml IVPB PRN PRN Hypoglycemia Protocol
[2020-06-15 12:24] LABS: Glucose Point of Care 156 (65-105)
[2020-06-15 14:00] VITALS: BP 124/64; PULSE 85; RESP 18; TEMP 36.4; O2SAT 98
[2020-06-15 17:07] VITALS: PULSE 85
[2020-06-15 17:34] LABS: Glucose Point of Care 231 (65-105)
[2020-06-15 19:50] VITALS: PULSE 74; RESP 16; O2SAT 99
[2020-06-15] MEDS: DOCUSATE SODIUM 100 MG CAPSULE PO (20:19)
[2020-06-15] MEDS: MELATONIN 5 MG TABLET PO (20:20)
[2020-06-15 20:23] LABS: Glucose Point of Care 193 (65-105)
[2020-06-15 22:00] VITALS: BP 147/66; PULSE 74; RESP 16; TEMP 36.6; O2SAT 99
[2020-06-16] MEDS: ACETAMINOPHEN 500 MG TABLET 1000 MG PO ×2 (00:22→05:19)
[2020-06-16 05:44] VITALS: BP 131/56; PULSE 68; RESP 16; TEMP 36.2; O2SAT 98
[2020-06-16 07:15] LABS: Glucose Point of Care 226 (65-105)
[2020-06-16 08:30] VITALS: PULSE 68
[2020-06-16] MEDS: METOPROLOL TARTRATE 50 MG TAB PO (08:30)
[2020-06-16] MEDS: ASPIRIN 81 MG ENTERIC TABLET PO (08:30)
[2020-06-16] MEDS: ATORVASTATIN 40 MG TABLET 80 MG PO (08:31)
[2020-06-16] MEDS: CLOPIDOGREL BISULFATE 75 MG TABLET PO (08:31)
[2020-06-16] MEDS: FLUoxetine HCL 20 MG CAPSULE PO (08:31)
[2020-06-16] MEDS: CHOLECALCIFEROL 1,000 UNITS TABLET 5000 UNITS PO (08:31)
[2020-06-16] MEDS: FUROSEMIDE 40 MG TABLET PO (08:31)
[2020-06-16] MEDS: FENOFIBRATE NANOCRYSTALLIZED 145 MG TABLET PO (08:31)
[2020-06-16] MEDS: PANTOPRAZOLE 40 MG TABLET PO (08:31)
--- NOTE | 2020-06-16 08:38 | PM.DS ---
DS: Admitting Diagnosis Admitting Diagnosis Admitting Diagnosis: Right below-knee amputation DS: Discharge Diagnosis Discharge Diagnosis (1) Right BKA infection: Code(s): T87.43 - Infection of amputation stump, right lower extremity Status: Acute Assessment and Plan: Ongoing dressing changes. Amputee Shield will be worn while out of bed. (2) Insomnia: Code(s): G47.00 - Insomnia, unspecified Status: Acute Assessment and Plan: Melatonin will be added (3) Cervical myelopathy with cervical radiculopathy: Code(s): G95.9 - Disease of spinal cord, unspecified; M54.12 - Radiculopathy, cervical region Status: Acute Assessment and Plan: Patient states that during surgery he woke up with numbness and mild weakness to the right upper extremity. He was told that it was a pinched nerve from his neck. We will continue to follow. Patient may require an EMG nerve conduction study test if motor and sensory does not return. Patient states strength is slowly returning (4) Hypertension: Code(s): I10 - Essential (primary) hypertension Status: Acute Assessment and Plan: Close monitoring with current medication (5) Insulin dependent type 2 diabetes mellitus: Code(s): E11.9 - Type 2 diabetes mellitus without complications; Z79.4 - manager intermediate (current) use of insulin Status: Chronic Assessment and Plan: insulin pump with current medication (6) Dyslipidemia: Code(s): E78.5 - Hyperlipidemia, unspecified Status: Chronic Assessment and Plan: current medication will be monitored DS: Summary Hospital Course Hospital Course: see dictation Time Spent with Patient Time attestation: Total time spent providing and/or coordinating discharge services: 45 minutes The patient's primary rehab impairment category is amputation lower extremity The etiologic diagnosis is chronic right foot ulceration with osteomyelitis I saw this patient [id number] on 06/11/2020 thru 06/16/20 The patient is a 49-year-old male with a past medical history of hypertension, hyperlipidemia, coronary artery disease, myocardial infarction, congestive heart failure, chronic pain, uncontrolled diabetes mellitus, and a chronic right foot ulcer 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 Patient has had ongoing problematic wound issues to the right foot since September of 2019. Plastic surgery was consulted prior to patient's surgery to see if the limb could be salvaged. Plastic surgery recommended amputation. The patient underwent a right below-knee amputation on 06/04/[address] Fernandez Mayorga. Consultants were endocrinology and pain service. Postoperatively the patient experienced acute postoperative pain, hyperglycemia, acute blood loss anemia, and acute kidney injury. His pain is controlled currently with oral analgesics. Endocrinology consulted for hyperglycemia and the patient is currently on his insulin pump, Trulicity, Acute blood loss anemia was stabilized with current hemoglobin of 11.6. Patient's creatinine is currently 1.8 and down from 2.0. Patient will maintain nonweightbearing to the right lower extremity with use of an amputee Shield. Patient states that during surgery he experience a pinched nerve to his neck resulting in subjective right upper extremity weakness. He will be discharged to rehab on aspirin and Plavix for DVT prophylaxis. REHAB HOSPITAL COURSE DM Patient was able to continue home regiment of his insulin with fair control. Patient will be following up with endocrine clinic at [place] [facility] Good control without Lisinopril but PCP will need to re eval to see if Lisinopril should be added. . There was an occasional elevated blood pressure during his rehab stay. But this may be due to a cardiac exercise that was performed during therapy. Incision: Omar
[2020-06-16] MEDS: oxyCODONE HCL (*CRX) 5 MG TAB IR PO (10:16)
[2020-06-16 11:51] LABS: Glucose Point of Care 178 (65-105)
== END 2020-06-16 12:15 | disposition home health service (06) | DRG 560 ==
PROVIDERS: Admitting Provider Physical Medicine & Rehabilitation; PCP Physician Assistant; Visit Provider Physical Medicine & Rehabilitation
DX: Z47.81 Encounter for orthopedic aftercare following surgical amputation (principal); G95.9 Disease of spinal cord, unspecified; Z68.41 Body mass index [BMI] 40.0-44.9, adult; Z89.511 Acquired absence of right leg below knee; E66.9 Obesity, unspecified; E78.5 Hyperlipidemia, unspecified; E11.65 Type 2 diabetes mellitus with hyperglycemia; F17.210 Nicotine dependence, cigarettes, uncomplicated; G47.00 Insomnia, unspecified; G89.29 Other chronic pain; I11.0 Hypertensive heart disease with heart failure; I50.9 Heart failure, unspecified; I25.10 Atherosclerotic heart disease of native coronary artery without angina pectoris; I25.2 Old myocardial infarction; M54.12 Radiculopathy, cervical region; Z79.899 Other long term (current) drug therapy; Z79.4 Long term (current) use of insulin; Z95.1 Presence of aortocoronary bypass graft
CPT/HCPCS: 36415; 80053; 85025; 97110; 97116; 97161; 97166; 97530; 97535; 97542; A9270

== ENCOUNTER 2020-11-15 13:30 | Outpatient (RCR) | payer BC, SELFPAY ==
--- NOTE | 2020-10-16 16:09 | PTOPEVAL ---
PHYSICAL THERAPY EVALUATION AND PLAN OF CARE 10-16-20 Thank you for referring Sina Sebastian to [facility], for the diagnosis of s/p R BKA and prosthetic training. Kelechi is scheduled to be seen for therapy? 2 x/week for 4 weeks. Please review, sign, date and return this plan of care MACIEJ. I agree with and certify that the following plan of care is medically necessary. Referring Physician Date Attending Provider: Fernandez Mayorga MD *PT Outpatient Evaluation Document 10/16/20 15:00 CHRISSY (Rec: 10/16/20 16:09 CHRISSY [id number]) Outpatient Past Medical History Past Medical History Source of Past Medical History Recalled from Previous Visit, Confirmed with Patient/Family Neurological History Hx Neurological Disorders No Significant History Cardiovascular History Hx Cardiac Surgery Yes: bypass 2014, stent placement, reconstructive chest surgery 2015 Hx Hypercholesterolemia Yes: meds Hx Hypertension Yes: meds Respiratory History Hx Respiratory Disorders No Significant History Gastrointestinal History Hx Hernia Yes: has hernia- needs to have surgery Genitourinary History Hx Genitourinary Disorders No Significant History Musculoskeletal History Hx Back Pain Yes: needs to have another back surgery, waiting until stronger Hx Crutches or Walker Use Yes Query Text:If Yes, Enter Crutches, Walker, or Both in the Comment Hx Orthopedic Surgery Yes: lumbar discectomy, lumbar fusion 2002, all R& L toes surgically removed Hx Other Musculoskeletal Disorders Yes: R BKA, this admission; R shoulder pain/RTC tear; Hematological History Hx Hematological Disorders No Significant History Endocrine History Hx Diabetes Yes Hx Insulin Pump Yes: some issues controlling blood sugars HEENT History Hx Cataracts Yes: R cataract removed; have cataract on L- to have surgery ,not scheduled Integumentary History Hx Skin Disorders No Significant History Reproductive History Hx Reproductive Disorders No Significant History Psychosocial History Hx Anxiety Yes: takes medicine Pain History Has Past Pain Affected Your Daily Life Yes: feet, legs, back Other History Hx Other Medical Conditions Yes: have had COVID vaccine Evaluation Information Problem Diagnosis s/p R BKA, due to wound on R foot Onset June 04, 2020 Subjective Informati
--- NOTE | 2020-11-15 14:29 | PTOPEVAL ---
PHYSICAL THERAPY DISCHARGE 11-15-20 Refer to the clinical summary below for his status today, compared to the initial evaluation. The goals were partially achieved--all except goal for no falls and reps with standing exercises. He is limited in his mobility due to back pain. Discharge PT services. Thank you for referring Sina Sebastian to [facility].? Please review, sign, date and return this Discharge report MACIEJ. I agree with and certify that the following plan of care is medically necessary. Referring Physician Date Attending Provider: Fernandez Mayorga MD Document 11/15/20 13:30 CHRISSY (Rec: 11/15/20 14:28 CHRISSY [id number]) Subjective Information Sina reports: pleased with Query Text:As Reported By Patient/ how his therapy has gone, Family doing better; has fallen 2 times: when pushing on arm rest of chair, kids had spilled drink and hand slid off and landed on floor and in standing, reaching up to get pitcher of full tea out of fridge, back locked, legs went numb and fell; was able to get up off the floor without any help; is wearing prosthesis 6-8 hr at time, up to total 10-12 hours; 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 Pain Assessment Timing of Pain Assessment Timing of Pain Assessment Assessment Pain Scale Pain Scale Used Numeric (1 - 10) Self Report Pain Assessment Back Reported Pain Level 3 Pain Description Aching,Pressure,Sharp,Soreness Pain Frequency Chronic Right Leg(s) Reported Pain Level 0 Pain Score Pain Score 3,0: Self Report Additional Pain Score Comments continues to have back and radicular leg pain-- has appt to see back surgeon soon. expects to have surgery on his back; Interventions Used Interventions Used By Clinicians Education Lower Extremity Muscle Strength Testing General Lower Extremity Strength Gross Lower Extremity Strength functional strength: - sit/stand without use of UE' s; with initial standing, tends to lose balance and small step to catch himself; with wide base of support, R foot slightly forward and hip
== END 2020-12-30 08:14 | disposition home or self-care (01) ==
LOC: ANHPT 13:30
PROVIDERS: PCP Physician Assistant; Visit Provider Plastic Surgery
DX: Z47.81 Encounter for orthopedic aftercare following surgical amputation (principal); Z89.511 Acquired absence of right leg below knee
CPT/HCPCS: 97110; 97112; 97116; 97161